=== PATIENT | female | born 1945 | race Caucasian/White ===

== ENCOUNTER 2019-03-11 09:13 | Day surgery (SDC) | payer OTHER ==
[2019-03-11] MEDS ORDERED: NA CHLORIDE 0.9% 1,000 ML ONE (09:57)
[2019-03-11 10:49] LABS: Absolute Lymphocytes (CBC) 1.1 K/uL (0.7-4.9); Basophils % 0.8 % (0-1.3); Hematocrit 39.4 % (36.0-45.0); Lymphocytes % 11.7 % (15.3-44.8); MPV 10.1 fL (7.6-11.3); RBC Red Blood Cell Count 4.31 M/uL (3.86-4.86)
[2019-03-11 10:59] LABS: Protime INR 1.17
[2019-03-11] MEDS ORDERED: INSULIN -REGULAR HUMAN 50 UNIT/0.5 ML ML ONE (11:04)
[2019-03-11 11:12] LABS: Potassium 4.7 mmol/L (3.5-5.1)
[2019-03-11 11:15] VITALS: BP 91/76; TEMP 98; O2SAT 98
--- NOTE | 2019-03-11 11:55 | RAD REPORT ---
EXAM DESCRIPTION: RAD - Chest Pa And Lat (2 Views) - 03/11/2019 11:43 am CLINICAL HISTORY: Colorectal screening Chest pain. COMPARISON: CHEST SINGLE VIEW dated 08/23/2011 FINDINGS: The lungs are hyperexpanded but clear. The heart is moderately enlarged with a single lead pacer device. No displaced fractures.
[2019-03-11] MEDS ORDERED: GLYCOPYRROLATE 0.2 MG/ML SYR ONE (12:16)
[2019-03-11] MEDS ORDERED: LIDOCAINE 1% MPF 30 ML VIAL ONE (12:16)
[2019-03-11] MEDS ORDERED: PROPOFOL 200 MG/20 ML VIAL IV ONE (12:16)
[2019-03-11] MEDS ORDERED: DILTIAZEM 125 MG in NS 125 ML IVPB ONE (12:30)
--- NOTE | 2019-03-11 15:52 | EKG ---
Test Date: 2019-03-11 Test Time: 10:44:47 Breast Splitter: JOSE MEASUREMENT RESULTS: Intervals: Rate: 137 MA: QRSD: 82 QT: 310 QTc: 468 [place]: P: MA: QRS: 38 T: 126 INTERPRETIVE STATEMENTS: Atrial fibrillation with rapid ventricular response with premature ventricular or aberrantly conducted complexes Nonspecific T wave abnormality, probably digitalis effect Abnormal ECG Compared to ECG 08/23/2011 20:24:52 T-wave abnormality now present Ventricular-paced complex(es) or rhythm no longer present ST (T wave) deviation no longer present Possible ischemia no longer present Electronically Signed On 03-11-19 15:50:42 CDT by Elier Cortez
[2019-03-12] MEDS ORDERED: NA CHLORIDE 0.9% 1,000 ML ONE (10:18)
[2019-03-12] MEDS ORDERED: TRAMADOL HCL 50 MG TAB ONE (13:11)
== END 2019-03-11 13:04 | disposition home or self-care (01) ==
LOC: OR 09:13
PROVIDERS: ATTEND Surgery
DX: Z12.11 Encounter for screening for malignant neoplasm of colon (principal); Z53.8 Procedure and treatment not carried out for other reasons
CPT/HCPCS: 93005; 85025; 80048; 36415; 85610; 82962 ×3; 85730; 71046; J2704; J7030

== ENCOUNTER 2019-03-11 12:38 | Observation (INO) | payer OTHER ==
[2019-03-11] MEDS ORDERED: METOPROLOL TAR 25 MG TAB ONE (12:55)
[2019-03-11] MEDS ORDERED: NA CHLORIDE 0.9% 1,000 ML ONE (12:55)
[2019-03-11] MEDS ORDERED: METOPROLOL TARTRATE 5 MG/5 ML INJ IV ONE (12:55)
[2019-03-11 13:22] LABS: Absolute Lymphocytes (CBC) 1.2 K/uL (0.7-4.9); Basophils % 0.7 % (0-1.3); Hematocrit 41.2 % (36.0-45.0); Lymphocytes % 14.3 % (15.3-44.8); MPV 10.3 fL (7.6-11.3); Protime INR 1.21; RBC Red Blood Cell Count 4.46 M/uL (3.86-4.86)
--- NOTE | 2019-03-11 13:29 | EDPHYS ---
Physician Documentation [facility] Name: Candice Hunter Age: 73 yrs Sex: Female : 1945 Arrival Date: 03/11/2019 Time: 12:39 Bed 4 Private MD: ED Physician Fredy Barbosa HPI: 03/11 12:59 This 73 yrs old Female presents to ER via Stretcher with complaints of steve abnormal EKG. 12:59 The patient presents with a history of irregular heart beat, heart racing. Context: The steve symptoms occur at rest. Onset: The symptoms/episode began/occurred just prior to arrival, this morning. Duration: The patient or guardian reports a single episode, that is still ongoing. Modifying factors: The symptoms are aggravated by nothing. The symptoms are alleviated by nothing. Associated signs and symptoms: The patient has no apparent associated signs or symptoms. Severity of symptoms: At their worst the symptoms were mild in the emergency department the symptoms are unchanged. The patient has not experienced similar symptoms in the past. Historical: - Allergies: 12:52 Iodine; tw2 12:52 Sulfa (Sulfonamide Antibiotics); tw2 - Home Meds: 12:52 atorvastatin 40 mg oral tab 1 tab once daily [Active]; levothyroxine 100 mcg tab 1 tab tw2 once daily [Active]; warfarin 3 mg Oral tab 1 tab once daily [Active]; digoxin 125 mcg Oral tab 1 tab once daily [Active]; Toujeo SoloStar 300 unit/mL (1.5 mL) subcutaneous inpn 26 units [Active]; aspirin 81 mg Oral chew 1 tab once daily [Active]; Breo Ellipta 100-25 mcg/dose inhalation dsdv 1 puff once daily [Active]; metoprolol succinate 100 mg oral Tb24 1 tab once daily [Active]; - PMHx: 12:52 Hypertension; COPD; CHF; Heart Murmur; tw2 14:26 Atrial Fib; tw2 - PSHx: 12:52 heart valve replacement; ovarian cyst, right ovary; Cholecystectomy; ; tw2 - Immunization history:: Adult Immunizations. - Social history:: Smoking status: . - Family history:: not pertinent. - Ebola Screening: : Patient denies travel to an Ebola-affected area in the 21 days before illness onset. ROS: 12:59 Constitutional: Negative for fever, chills, and weight loss, Eyes: Negative for injury, steve pain, redness, and discharge, ENT: Negative for injury, pain, and discharge, Neck: Negative for injury, pain, and swelling, Respiratory: Negative for shortness of breath, cough, wheezing, and pleuritic chest pain, Abdomen/GI: Negative for abdominal pain, nausea, vomiting, diarrhea, and constipation, Back: Negative for injury and pain, : Negative for injury, bleeding, discharge, and swelling, MS/Extremity: Negative for injury and deformity, Skin: Negative for injury, rash, and discoloration, Neuro: Negative for headache, weakness, numbness, tingling, and seizure, Psych: Negative for depression, anxiety, suicide ideation, homicidal ideation, and hallucinations, Allergy/Immunology: Negative for hives, rash, and allergies, Endocrine: Negative for neck swelling, polydipsia, polyuria, polyphagia, and marked weight changes, Hematologic/Lymphatic: Negative for swollen nodes, abnormal bleeding, and unusual bruising. 12:59 Cardiovascular: Positive for palpitations. Exam: 12:59 Constitutional: This is a well developed, well nourished patient who is awake, alert, steve and in no acute distress. Head/Face: Normocephalic, atraumatic. Eyes: Pupils equal round and reactive to light, extra-ocular motions intact. Lids and lashes normal. Conjunctiva and sclera are non-icteric and not injected. Cornea within normal limits. Periorbital areas with no swelling, redness, or edema. ENT: Nares patent. No nasal discharge, no septal abnormalities noted. Tympanic membranes are normal and external auditory canals are clear. Oropharynx with no redness, swelling, or masses, exudates, or evidence of obstruction, uvula midline. Mucous membranes moist. Neck: Trachea midline, no thyromegaly or masses palpated, and no cervical lymphadenopathy. Supple, full range of motion without nuchal rigidity, or vertebral point tenderness. No Meningismus. Chest/axilla: Normal chest wall appearance and motion. Nontender with no deformity. No lesions are appreciated. Respiratory: Lungs have equal breath sounds bilaterally, clear to auscultation and percussion. No rales, rhonchi or wheezes noted. No increased work of breathing, no retractions or nasal flaring. Abdomen/GI: Soft, non-tender, with normal bowel sounds. No distension or tympany. No guarding or rebound. No evidence of tenderness throughout. Back: No spinal tenderness. No costovertebral tenderness. Full range of motion. Female : Normal external genitalia. Skin: Warm, dry with normal turgor. Normal color with no rashes, no lesions, and no evidence of cellulitis. MS/ Extremity: Pulses equal, no cyanosis. Neurovascular intact. Full, normal range of motion. Neuro: Awake and alert, GCS 15, oriented to person, place, time, and situation. Cranial nerves II-XII grossly intact. Motor strength 5/5 in all extremities. Sensory grossly intact. Cerebellar exam normal. Normal gait. Psych: Awake, alert, with orientation to person, place and time. Behavior, mood, and affect are within normal limits. 12:59 Cardiovascular: Rate: tachycardic, Rhythm: irregularly irregular, Pulses: Pulses are 4+ in bilateral radial, brachial, femoral, popliteal, posterior tibial and and dorsalis pedis arteries.. Heart sounds: normal, Edema: is not appreciated, JVD: is not appreciated. Vital Signs: 12:42 BP 115 / 94; Pulse 121; Resp 14; Temp 97.4(O); Pulse Ox 100% on R/A; tw2 13:30 BP 114 / 81; Pulse 95; Resp 17; Pulse Ox 100% on R/A; tw2 13:43 Weight 70.31 kg (R); Height 5 ft. 6 in. (167.64 cm); tw2 14:24 BP 107 / 71; Pulse 90; Resp 15; Pulse Ox 100% on R/A; tw2 15:12 BP 96 / 50; Pulse 91; Resp 19; Pulse Ox 100% on R/A; tw2 13:43 Body Mass Index 25.02 (70.31 kg, 167.64 cm) tw2 MDM: 12:44 Patient medically screened. [facility] 13:02 Data reviewed: vital signs, nurses notes, lab test result(s), EKG, radiologic studies, [facility] plain films. 03/11 12:49 Order name: Basic Metabolic Panel; Complete Time: 14:41 [facility] 03/11 12:49 Order name: CBC with Diff; Complete Time: 13:28 [facility] 03/11 12:49 Order name: LFT's; Complete Time: 14:41 03/11 12:49 Order name: Magnesium; Complete Time: 14:41 03/11 12:49 Order name: NT PRO-BNP; Complete Time: 14:41 03/11 12:49 Order name: PT-INR; Complete Time: 13:28 03/11 12:49 Order name: Troponin (emerg Dept Use Only); Complete Time: 14:41 03/11 12:49 Order name: XRAY Chest (1 view); Complete Time: 14:41 03/11 12:49 Order name: TSH; Complete Time: 14:41 03/11 12:49 Order name: Urine Culture 03/11 12:51 Order name: Digoxin; Complete Time: 14:41 [facility] 03/11 12:49 Order name: EKG; Complete Time: 12:49 [facility] 03/11 12:49 Order name: Cardiac monitoring; Complete Time: 12:53 03/11 12:49 Order name: EKG - Nurse/Tech; Complete Time: 12:53 [facility] 03/11 12:49 Order name: IV Saline Lock; Complete Time: 12:53 [facility] 03/11 12:49 Order name: Labs collected and sent; Complete Time: 13:10 steve 03/11 12:49 Order name: O2 Per Protocol; Complete Time: 12:53 [facility] 03/11 12:49 Order name: O2 Sat Monitoring; Complete Time: 12:53 [facility] Administered Medications: 13:05 Drug: NS 0.9% 1000 ml Route: IV; Rate: 125 ml/hr; Site: left wrist; tw2 15:14 Follow up: Response: No adverse reaction; IV Status: Infusion continued upon admission tw2 13:05 Drug: Lopressor 25 mg Route: PO; tw2 13:44 Follow up: Response: No adverse reaction tw2 13:08 Drug: Lopressor 2.5 mg Route: IVP; Site: left wrist; tw2 13:44 Follow up: Response: No adverse reaction tw2 14:00 Drug: Lovenox 1 mg/kg Route: Sub-Q; Site: right lower abdomen; tw2 14:36 Follow up: Response: No adverse reaction tw2 14:00 Drug: Pepcid 20 mg Route: IVP; Site: left wrist; tw2 14:36 Follow up: Response: No adverse reaction tw2 14:50 Drug: Digoxin 0.5 mg Route: IVP; Site: left wrist; tw2 15:08 Follow up: Response: No adverse reaction tw2 14:51 Not Given (Duplicate Order): Lopressor 2.5 mg IVP once; Hold for SBP <100 or HR <60. tw2 Disposition: 03/11/19 13:28 Hospitalization ordered by Elvis Berg for Inpatient Admission. Preliminary diagnosis are Cardiomegaly, Atrial fibrillation and flutter. - Bed requested for Telemetry/MedSurg (Inpatient). - Status is Inpatient Admission. tw2 - Condition is Fair. - Problem is new. - Symptoms have improved. UTI on Admission? No Signatures: Dispatcher [employer] Jory Buitrago RN RN Fredy Marie MD MD cha Wise, Tara, RN RN tw2 Corrections: (The following items were deleted from the chart) 14:46 13:28 Hospitalization Ordered by Elvis Berg DO for Inpatient Admission. Preliminary diagnosis is Cardiomegaly; Atrial fibrillation and flutter. Bed requested for Telemetry/MedSurg (Inpatient). Status is Inpatient Admission. Condition is Fair. Problem is new. Symptoms have improved. UTI on Admission? No. steve 15:24 14:46 03/11/2019 13:28 Hospitalization Ordered by Elvis Berg DO for Inpatient tw2 Admission. Preliminary diagnosis is Cardiomegaly; Atrial fibrillation and flutter. Bed requested for Telemetry/MedSurg (Inpatient). Status is Inpatient Admission. Condition is Fair. Problem is new. Symptoms have improved. UTI on Admission? No. dw
--- NOTE | 2019-03-11 13:29 | ER ---
Nurse's Notes [facility] Name: Candice Hunter Age: 73 yrs Sex: Female : 1945 Arrival Date: 03/11/2019 Time: 12:39 Bed 4 Private MD: Diagnosis: Cardiomegaly;Atrial fibrillation and flutter Presentation: 03/11 12:40 Presenting complaint: Patient states: Patient was scheduled for colonoscopy today in Day Surgery when she had her EKG obtained it showed Afib. Patient sent by Dr. Garibay for further evaluation and treatment. Transition of care: Day surgery department. Risk Assessment: Do you want to hurt yourself or someone else? Patient reports no desire to harm self or others. Initial Sepsis Screen: Does the patient meet any 2 criteria? HR > 90 bpm. Does the patient have a suspected source of infection? No. Patient's initial sepsis screen is negative. Care prior to arrival:. 12:40 Method Of Arrival: Stretcher 12:40 Acuity: LITA 2 14:26 Onset of symptoms was March 11, 2019. tw2 Triage Assessment: 12:42 General: Appears in no apparent distress. Behavior is calm, cooperative, appropriate tw2 for age. Pain: Denies pain. Historical: - Allergies: 12:52 Iodine; tw2 12:52 Sulfa (Sulfonamide Antibiotics); tw2 - Home Meds: 12:52 atorvastatin 40 mg oral tab 1 tab once daily [Active]; levothyroxine 100 mcg tab 1 tab tw2 once daily [Active]; warfarin 3 mg Oral tab 1 tab once daily [Active]; digoxin 125 mcg Oral tab 1 tab once daily [Active]; Toujeo SoloStar 300 unit/mL (1.5 mL) subcutaneous inpn 26 units [Active]; aspirin 81 mg Oral chew 1 tab once daily [Active]; Breo Ellipta 100-25 mcg/dose inhalation dsdv 1 puff once daily [Active]; metoprolol succinate 100 mg oral Tb24 1 tab once daily [Active]; - PMHx: 12:52 Hypertension; COPD; CHF; Heart Murmur; tw2 14:26 Atrial Fib; tw2 - PSHx: 12:52 heart valve replacement; ovarian cyst, right ovary; Cholecystectomy; ; tw2 - Immunization history:: Adult Immunizations. - Social history:: Smoking status: . - Family history:: not pertinent. - Ebola Screening: : Patient denies travel to an Ebola-affected area in the 21 days before illness onset. Screenin:47 Abuse screen: Denies threats or abuse. Nutritional screening: No deficits noted. tw2 Tuberculosis screening: No symptoms or risk factors identified. Fall Risk Secondary diagnosis (15 points) impaired mobility. Assessment: 12:45 General: Appears in no apparent distress. Behavior is calm, cooperative, appropriate tw2 for age. Pain: Denies pain. Neuro: Level of Consciousness is awake, alert, obeys commands, Oriented to person, place, time, situation. Cardiovascular: Heart tones S1 S2 Patient's skin is warm and dry. Rhythm is atrial fibrillation With PVC's. Respiratory: Airway is patent Respiratory effort is even, unlabored, Respiratory pattern is regular, symmetrical, Breath sounds are clear bilaterally. GI: No signs and/or symptoms were reported involving the gastrointestinal system. Abdomen is flat, Bowel sounds present X 4 quads. : No signs and/or symptoms were reported regarding the genitourinary system. EENT: No signs and/or symptoms were reported regarding the EENT system. Derm: No signs and/or symptoms reported regarding the dermatologic system. Musculoskeletal: Range of motion: intact in all extremities. 12:45 Reassessment: pt states "i have a history of afib". tw2 13:30 Reassessment: Patient appears in no apparent distress at this time. No changes from tw2 previously documented assessment. Reassessment: Patient and/or family updated on plan of care and expected duration. Pain level reassessed. Patient is alert, oriented x 3, equal unlabored respirations, skin warm/dry/pink. 14:24 Reassessment: Patient appears in no apparent distress at this time. No changes from tw2 previously documented assessment. Patient and/or family updated on plan of care and expected duration. Pain level reassessed. Patient is alert, oriented x 3, equal unlabored respirations, skin warm/dry/pink. 15:12 Reassessment: Patient appears in no apparent distress at this time. No changes from tw2 previously documented assessment. Patient and/or family updated on plan of care and expected duration. Pain level reassessed. Patient is alert, oriented x 3, equal unlabored respirations, skin warm/dry/pink. Vital Signs: 12:42 BP 115 / 94; Pulse 121; Resp 14; Temp 97.4(O); Pulse Ox 100% on R/A; tw2 13:30 BP 114 / 81; Pulse 95; Resp 17; Pulse Ox 100% on R/A; tw2 13:43 Weight 70.31 kg (R); Height 5 ft. 6 in. (167.64 cm); tw2 14:24 BP 107 / 71; Pulse 90; Resp 15; Pulse Ox 100% on R/A; tw2 15:12 BP 96 / 50; Pulse 91; Resp 19; Pulse Ox 100% on R/A; tw2 13:43 Body Mass Index 25.02 (70.31 kg, 167.64 cm) tw2 ED Course: 12:39 Patient arrived in ED. bd 12:40 Placed in gown. Bed in low position. Side rails up X2. electronic device monitor on. Pulse ox on. tw2 NIBP on. Warm blanket given. 12:41 Triage completed. ss 12:42 Natasha De Souza, RAJINDER is Primary Nurse. tw2 12:42 Arm band placed on. tw2 12:44 Fredy Barbosa MD is Attending Physician. steve 12:59 EKG done, by slot technician. reviewed by Fredy Barbosa MD. at1 13:17 XRAY Chest (1 view) In Process Unspecified. EDMS 13:26 Elvis Berg DO is Hospitalizing Provider. steve 15:12 No provider procedures requiring assistance completed. Inserted saline lock: 20 gauge tw2 in left wrist, using aseptic technique. ,using aseptic technique. from Endo, maintain IV 15:13 Patient admitted, IV remains in place. tw2 Administered Medications: 13:05 Drug: NS 0.9% 1000 ml Route: IV; Rate: 125 ml/hr; Site: left wrist; tw2 15:14 Follow up: Response: No adverse reaction; IV Status: Infusion continued upon admission tw2 13:05 Drug: Lopressor 25 mg Route: PO; tw2 13:44 Follow up: Response: No adverse reaction tw2 13:08 Drug: Lopressor 2.5 mg Route: IVP; Site: left wrist; tw2 13:44 Follow up: Response: No adverse reaction tw2 14:00 Drug: Lovenox 1 mg/kg Route: Sub-Q; Site: right lower abdomen; tw2 14:36 Follow up: Response: No adverse reaction tw2 14:00 Drug: Pepcid 20 mg Route: IVP; Site: left wrist; tw2 14:36 Follow up: Response: No adverse reaction tw2 14:50 Drug: Digoxin 0.5 mg Route: IVP; Site: left wrist; tw2 15:08 Follow up: Response: No adverse reaction tw2 14:51 Not Given (Duplicate Order): Lopressor 2.5 mg IVP once; Hold for SBP <100 or HR <60. tw2 Outcome: 13:28 Decision to Hospitalize by Provider. steve 15:13 Admitted to Med/surg accompanied by tech, via wheelchair, room 407, with chart, Report tw2 called to RAJINDER Green 15:13 Condition: stable 15:13 Instructed on the need for admit. 15:24 Patient left the ED. tw2 Signatures: Dispatcher [employer] EDMS Tina Pagan Corey, MD MD cha Smirch, Shelby RN RN Ananya Acuna, electrocardiograph technician EKG Tat1 Natasha De Souza RN RN tw2
[2019-03-11 13:44] LABS: ALT/SGPT 35 U/L (12-78); AST/SGOT 36 U/L (15-37); Alkaline Phosphatase 97 U/L (45-117); BUN Blood Urea Nitrogen 16 mg/dL (7-18); Bicarbonate 24 mmol/L (21-32); Bilirubin Direct 0.4 mg/dL (0-0.2); Bilirubin Total 2.1 mg/dL (0.2-1.0); Glucose Level 231 mg/dL (74-106); NT PRO-BNP 2352 pg/mL (<125); Potassium 4.9 mmol/L (3.5-5.1); Protein, Total 7.1 g/dL (6.4-8.2); Sodium Level 139 mmol/L (136-145); Troponin (Emerg Dept Use Only) < 0.02 ng/mL (0.0-0.045)
--- NOTE | 2019-03-11 13:49 | RAD REPORT ---
EXAM DESCRIPTION: RAD - Chest Single View - 03/11/2019 1:17 pm CLINICAL HISTORY: Cough, abnormal EKG, pending colonoscopy COMPARISON: March 11 TECHNIQUE: AP portable chest image was obtained 1306 hours . FINDINGS: Mild chronic interstitial lung disease. No focal lung parenchymal process. No significant failure or volume overload. Cardiomegaly is present and increased slightly from comparison. Pacemaker is in place. No measurable pleural effusion and no pneumothorax. No acute bony abnormality seen. No acute aortic findings suspected. IMPRESSION: Mild chronic interstitial lung pattern similar to comparison. Mild cardiomegaly without additional findings of significant failure or volume overload.
[2019-03-11] MEDS ORDERED: ENOXAPARIN 80 MG/0.8 ML SQ ONE (13:56)
[2019-03-11] MEDS ORDERED: FAMOTIDINE 20 MG/2 ML VIAL IV ONE (13:56)
--- NOTE | 2019-03-11 14:36 | P.HP ---
Certification for Inpatient Patient admitted to: Observation With expected LOS: <2 Midnights Patient will require the following post-hospital care: None Practitioner: I am a practitioner with admitting privileges, knowledge of patient current condition, hospital course, and medical plan of care. Services: Services provided to patient in accordance with Admission requirements found in Title 42 Section 412.3 of the Code of Federal Regulations Patient History Date of Service: 03/11/19 Primary Care Provider: Dr. Jarocho Patricio; Cardiology-Dr. Cortez; Surgery-Dr. Garibay Reason for admission: Atrial fibrillation with RVR History of Present Illness: 73-year-old female presented to the emergency room with atrial fibrillation and RVR. Patient with history of atrial fibrillation on chronic anti coagulation therapy , hypertension, hypothyroidism, diabetes mellitus type 2 insulin dependent, mitral valve replacement, and hyperlipidemia. Patient was to have her colonoscopy today as an outpatient. Prior to coming in to outpatient surgery, she had held her Coumadin for 3 days in preparation for colonoscopy. She had been cleared by cardiology as well for the colonoscopy. In her evaluation by Anesthesia prior to the colonoscopy, the patient was found to have atrial fibrillation with RVR with a rate in the 120s. Anesthesia recommended that the patient be evaluated in the ER to further address. Patient came to the ER for further evaluation. Rate in the 120s. Patient was given Lopressor with improvement. Patient was admitted for further evaluation. On lab white count 8.5, hemoglobin 14.5. INR 1.21. Sodium 138, potassium 4.9, BUN of 16, creatinine 1.28 with a GFR 41. Glucose 231. Chest x-ray unremarkable. EKG shows atrial fibrillation. Rate now around 100. When I saw the patient ER, she appeared comfortable. She denies any chest pain , shortness of breath. She denies any nausea or vomiting. Patient took her prep for colonoscopy last night. Allergies iodine [Iodine] Allergy (Mild, Verified 08/23/11 17:33) Hives Home medications list reviewed: Yes Home Medications: Atorvastatin Calcium [Lipitor] 40 mg PO DAILY 08/23/11 Dicyclomine [Bentyl*] 20 mg PO TID 08/23/11 Digoxin [Lanoxin] 0.125 mg PO DAILY 08/23/11 Fluticasone/Salmeterol [Advair 250/50 Diskus*] 1 puff IH BID 08/23/11 Furosemide 20 mg PO DAILY 08/23/11 Levalbuterol Tartrate [Xopenex Hfa] 2 puff IH Q6H 08/23/11 Levalbuterol [Xopenex*] 1 aero IH BID 08/23/11 Levothyroxine [Synthroid*] 150 mcg PO DAILY 08/23/11 Metformin HCl [Glucophage XR OR ER] 500 mg PO BID 08/23/11 Metoprolol Tartrate [Lopressor*] 50 mg PO BID 08/23/11 PROMETHAZINE TAB *er disp* [[id number](4/BOX)*forerdispense] 25 mg PO TID 08/23/11 Warfarin Sodium 2.5 mg PO DAILY 08/23/11 Enoxaparin Sodium [Lovenox] 40 mg SQ DAILY #5 ml 08/25/11 Hydrocodone/Acetaminophen [Vicodin Es 7.5-750 mg Tablet] 1 tab PO Q4H PRN #30 tablet 08/25/11 Sulfamethoxazole/Trimethoprim [Bactrim Ds Tablet] 1 tab PO BID #10 tablet - Past Medical/Surgical History Diabetic: Yes -: Hypertension -: COPD -: Atrial fibrillation on chronic anti coagulation therapy -: Mitral valve replacement on chronic anti coagulation therapy -: Hyperlipidemia -: Hypothyroidism -: Diabetes mellitus type 2, insulin-dependent -: History of pacemaker -: Mitral valve replacement -: Pacemaker -: Right cyst removed from ovary -: Psychosocial/ Personal History: Patient is . She lives alone in an apartment. - Family History Family History: Reviewed- Non-Contributory - Social History Smoking Status: Never smoker Alcohol use: No CD- Drugs: No Caffeine use: Yes Place of Residence: Home Review of Systems General: As per HPI Eyes: Unremarkable ENT: Unremarkable Respiratory: Unremarkable Cardiovascular: Unremarkable Gastrointestinal: Unremarkable Genitourinary: Unremarkable Musculoskeletal: Unremarkable Integumentary: Unremarkable Neurological: Unremarkable Lymphatics: Unremarkable Physical Examination - Physical Exam General: Alert, In no apparent distress, Oriented x3, Cooperative HEENT: Atraumatic, Normocephalic, PERRLA, Mucous membr. moist/pink Neck: Supple Respiratory: Clear to auscultation bilaterally, Normal air movement Cardiovascular: Irregular heart rate/rhythm (Atrial fibrillation rate around 100 ) Gastrointestinal: Normal bowel sounds, Soft and benign, Non-distended, No tenderness, No masses, No rebound, No guarding Musculoskeletal: No erythema, No tenderness, No warmth Integumentary: No tenderness/swelling, No erythema, No warmth, No cyanosis Neurological: Normal speech, Normal strength at 5/5 x4 extr, Normal tone, Normal affect Lymphatics: No axilla or inguinal lymphadenopathy - Studies Laboratory Data (last 24 hrs) 03/11/19 13:02: PT 14.2 H, INR 1.21 03/11/19 13:02: WBC 8.5, Hgb 14.5, Hct 41.2, Plt Count 204 03/11/19 13:02: Sodium 139, Potassium 4.9, BUN 16, Creatinine 1.28, Glucose 231 H, Magnesium 2.0, Total Bilirubin 2.1 H, AST 36, ALT 35, Alkaline Phosphatase 97 Assessment and Plan - Plan Impression: Atrial fibrillation with RVR on chronic anti coagulation therapy History of mitral valve replacement and pacemaker Hypertension Hyperlipidemia Hypothyroidism Diabetes mellitus type 2, insulin dependent Chronic renal disease, stage III Plan: Atrial fibrillation with RVR on chronic anti coagulation therapy: Patient will be admitted for observation. Will consult cardiology for further recommendation. Will restart home medication of metoprolol for rate control. Will also continue with digoxin. Will continue to hold Coumadin as the patient will likely have colonoscopy tomorrow if cleared by Cardiology with a rate improved. Will keep the patient NPO after midnight. Will discuss with cardiology. Will provide DVT prophylaxis-Lovenox. Anticipate discharge home tomorrow after colonoscopy History of mitral valve replacement and pacemaker: Continue as above. Hold Coumadin at this time. Hypertension: Continue metoprolol. Hyperlipidemia: Continue Lipitor. Hypothyroidism: Continue levothyroxine. Diabetes mellitus type 2, insulin dependent: Will monitor Accu-Cheks and provide sliding scale. Chronic renal disease, stage III: Will monitor lab closely. Discharge Plan: Home Plan to discharge in: 24 Hours - Advance Directives Does patient have a Living Will: No Does patient have a Durable POA for Healthcare: No - Code Status/Comfort Care Code Status Assessed: Yes Code Status: Full Code Time Spent Managing Pts Care (In Minutes): 55
[2019-03-11] MEDS ORDERED: DIGOXIN 0.25 MG/ML AMP ONE (14:48)
[2019-03-11] MEDS ORDERED: ACETAMINOPHEN 500 MG TAB PO PRN (15:00)
[2019-03-11] MEDS ORDERED: ONDANSETRON 4 MG/2 ML VIAL IV PRN (15:00)
--- NOTE | 2019-03-11 15:51 | EKG ---
Test Date: 2019-03-11 Test Time: 12:51:00 Fire Tender: JOSE MEASUREMENT RESULTS: Intervals: Rate: 111 MT: QRSD: 84 QT: 328 QTc: 446 [place]: P: MT: QRS: 48 T: 68 INTERPRETIVE STATEMENTS: Atrial fibrillation with rapid ventricular response with premature ventricular or aberrantly conducted complexes Nonspecific T wave abnormality Abnormal ECG Compared to ECG 03/11/2019 10:44:47 No significant changes Electronically Signed On 03-11-19 15:50:02 CDT by lEier Cortez
[2019-03-11] MEDS ORDERED: PNEUMOCOCCAL VACCINE 0.5 ML IMVAC ONE (16:00)
[2019-03-11] MEDS ORDERED: INFLUENZA VACCINE (for 3y+) 0.5 ML DOSE IMVAC ONE (16:00)
[2019-03-11 16:02] VITALS: BMI 23.5
[2019-03-11] MEDS: INSULIN -REGULAR HUMAN 50 UNIT/0.5 ML ML SQ SCH ×2 (16:30→20:46)
--- NOTE | 2019-03-11 17:10 | CON ---
This is a 73-year-old woman. Ms. Hunter is a woman, who has been in atrial fibrillation for more than 20 years. 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 She has an abnormal Cologuard test suggesting colon cancer, so a colonoscopy was planned and the patient was taken off Coumadin and given Lovenox and when she was ready to be induced by anesthesia, her heart rate was in the 120s. She did not feel bad in any way. She was sent to the emergency room. Since then, her heart rate is much slower. Ms. Hunter has a history of mitral valve replacement, chronic atrial fibrillation, rheumatic fever, diabetes , and an abnormal Cologuard test. Her outpatient medications include Coumadin digoxin and metoprolol, which were held, until after her colonoscopy. Outpatient Medications: Atorvastatin, levothyroxine, Coumadin, digoxin 0.125 mg daily, Toujeo SoloStar 1.5 mL subcutaneously. Aspirin, Breo Ellipta, metoprolol succinate 100 mg once a day. Surgical History: She has a history of ovarian cyst, cholecystectomy, section. Social History: She uses no tobacco. Physical Examination: General: She is 5 feet 10 inches, 164 pounds. Alert, oriented, pleasant, not in distress. Vital Signs: Blood pressure 107/71, heart rate 90, respirations 15, O2 saturation 100% on room air. HEENT: Normal. Lungs: Clear. Cardiac Exam: Irregularly irregular going about 80 beats per minute. There are typical mechanical prosthetic heart tones typical for mitral mechanical device most likely a [place]. There is no diastolic murmur. Extremities: Reveal no cyanosis, clubbing, or edema. No carotid bruit. An electrocardiogram shows atrial fibrillation, heart rate 111, occasional PVCs or aberrantly conducted complexes, nonspecific T-wave abnormality. Impression: The patient needs to continue to take her metoprolol succinate and digoxin. If her heart rate is fast right before the surgery, either metoprolol could be given and the colonoscopy can proceed. She should get a dose of Lovenox tonight at 6, not take any Coumadin and by 6 a.m. tomorrow she will be in good shape for going through the colonoscopy. Minimal risk of bleeding, even if she gets biopsies. She seems to be a low risk patient. If those things are done, I think her heart rate was up, probably because of being n.p.o. she did not take metoprolol or digoxin. Thank you very much for your kind referral of Ms. Hunter. I will follow her with you. ZULY Voice ID: [id number] Report ID: [id number] ANNA
[2019-03-11] MEDS ORDERED: ENOXAPARIN 80 MG/0.8 ML SQ SCH ×2 (18:00→21:00)
[2019-03-11] MEDS: ENOXAPARIN 80 MG/0.8 ML SQ SCH (18:12)
[2019-03-11 19:13] LABS: Urine Appearance CLOUDY; Urine Blood 2+ (NEG); Urine Color DK YELLOW; Urine Glucose TRACE (NEG); Urine Protein 2+ (NEG); Urine Specific Gravity 1.015 (1.005-1.030); Urine Urobilinogen 0.2 mg/dL (0.2-1.0)
[2019-03-11 19:23] LABS: Urine Bilirubin NEGATIVE (NEG); Urine Microscopic Reflex ORDER UMIC
[2019-03-11 19:40] LABS: Urine Bacteria LOADED /HPF (<20); Urine Coarse Granular Casts 0-5 /LPF (NONE SEEN); Urine Culture Reflex Order REFLEXED; Urine Mucus 1+ /HPF (NONE SEEN)
[2019-03-11] MEDS ORDERED: ATORVASTATIN 40 MG TAB PO SCH (21:00)
[2019-03-12 04:20] LABS: Absolute Lymphocytes (CBC) 1.5 K/uL (0.7-4.9); Basophils % 1.2 % (0-1.3); Hematocrit 36.7 % (36.0-45.0); Lymphocytes % 22.5 % (15.3-44.8); MPV 10.2 fL (7.6-11.3); RBC Red Blood Cell Count 4.04 M/uL (3.86-4.86)
[2019-03-12 04:30] LABS: Magnesium 1.8 mg/dL (1.8-2.4); Potassium 4.2 mmol/L (3.5-5.1)
[2019-03-12] MEDS ORDERED: MAGNESIUM SULFATE 1 gm IVPB 1 GM/100 ML BAG IV ONE (04:40)
[2019-03-12] MEDS ORDERED: LEVOTHYROXINE SOD 0.1 MG TAB PO SCH (06:30)
[2019-03-12] MEDS: INSULIN -REGULAR HUMAN 50 UNIT/0.5 ML ML SQ SCH ×2 (07:30→11:30)
[2019-03-12] MEDS: ENOXAPARIN 80 MG/0.8 ML SQ SCH (08:38)
[2019-03-12] MEDS ORDERED: ENOXAPARIN 40 MG/0.4 ML SQ SCH (09:00)
[2019-03-12] MEDS ORDERED: METOPROLOL XL 100 MG TAB PO SCH (09:00)
[2019-03-12] MEDS ORDERED: DIGOXIN 0.125 MG TABLET PO SCH (09:00)
--- NOTE | 2019-03-12 10:50 | PREOPCON ---
Date of Consultation: 03/11/2019 Reason For Consultation: Patient needs colonoscopy. History Of Present Illness: Patient is a 73-year-old female, who I saw in the office, who had an abn ormal Cologuard test and needed colonoscopy. She had some weight loss recently as well. She was pre pped and she came in, however, she was found to be in atrial fibrillation with RVR. She went to the ER, was admitted, and she was seen by Cardiology. They have cleared her for a colonoscopy today, the refore we will proceed with colonoscopy as scheduled. She has no cardiac symptoms at this time. Review of Systems: Otherwise unremarkable. Past Medical History: Significant for hypertension, COPD, atrial fibrillation on chronic anticoagula tion therapy, hyperlipidemia, hypothyroidism, diabetes type 2. Past Surgical History: Mitral valve replacement, pacemaker, , cystectomy from an ovary. Allergies: IODINE. Social History: Patient does not smoke or drink alcohol. Family History: Noncontributory. Physical Examination: Vital Signs: Stable. Afebrile currently. Rate is 85. General: She is awake, alert, and oriented x3. Head and Neck: No masses. Chest: Clear. Heart: S1 and S2. Abdomen: Soft. Extremities: Neurovascularly intact. Neuro: Nonfocal. Assessment: Abnormal Cologuard result, weight loss, atrial fibrillation with rapid ventricular respo nse under control. Recommendations: We will proceed with colonoscopy as scheduled. Patient understands the risks, bene fits, and alternatives and agrees to procedure. ELVIN/ANGELICA Voice ID: [id number] Report ID: [id number]
[2019-03-12] MEDS ORDERED: PROPOFOL 200 MG/20 ML VIAL IV ONE ×2 (11:59)
[2019-03-12] MEDS ORDERED: FENTANYL CITR 100 MCG/2 ML ONE (12:37)
--- NOTE | 2019-03-12 12:43 | P.DS ---
Admission Date: 03/11/19 Discharge Date: 03/12/19 Primary Care Provider: Dr. Jarocho Patricio; Cardiology-Dr. Cortez; Surgery-Dr. Garibay Disposition: ROUTINE DISCHARGE Discharge Condition: GOOD Reason for Admission: Atrial fibrillation with RVR Consultations: Cardiology-Dr. Cortez Surgery-Dr. Garibay Procedures: Colonoscopy: Colonoscopy performed with removal of colon polyp Medical Problem List: Atrial fibrillation with RVR on chronic anti coagulation therapy History of mitral valve replacement and pacemaker Hypertension Hyperlipidemia Hypothyroidism Diabetes mellitus type 2, insulin dependent Chronic renal disease, stage III COPD Brief History of Present Illness: 73-year-old female presented to the emergency room with atrial fibrillation and RVR. Patient with history of atrial fibrillation on chronic anti coagulation therapy , hypertension, hypothyroidism, diabetes mellitus type 2 insulin dependent, mitral valve replacement, and hyperlipidemia. Patient was to have her colonoscopy today as an outpatient. Prior to coming in to outpatient surgery, she had held her Coumadin for 3 days in preparation for colonoscopy. She had been cleared by cardiology as well for the colonoscopy. In her evaluation by Anesthesia prior to the colonoscopy, the patient was found to have atrial fibrillation with RVR with a rate in the 120s. Anesthesia recommended that the patient be evaluated in the ER to further address. Patient came to the ER for further evaluation. Rate in the 120s. Patient was given Lopressor with improvement. Patient was admitted for further evaluation. On lab white count 8.5, hemoglobin 14.5. INR 1.21. Sodium 138, potassium 4.9, BUN of 16, creatinine 1.28 with a GFR 41. Glucose 231. Chest x-ray unremarkable. EKG shows atrial fibrillation. Rate now around 100. When I saw the patient ER, she appeared comfortable. She denies any chest pain , shortness of breath. She denies any nausea or vomiting. Patient took her prep for colonoscopy last night. Hospital Course: Patient presented with atrial fibrillation with RVR. Patient was to have colonoscopy as an outpatient but anesthesia noted patient with RVR. Patient was seen and evaluated in the emergency room. Patient was admitted for further evaluation. Patient seen and evaluated by Cardiology. Rate better controlled. Cardiology has cleared patient for colonoscopy. Case discussed with surgery. Colonoscopy performed. Colon polyp was removed. Case discussed in detail with surgery. Patient will be discharged home. Continue postop colonoscopy recommendation. Patient follow up with surgery as an outpatient to follow up colonoscopy results in 1-2 weeks. Patient may restart Coumadin 3 mg daily in 2 days. Patient with history of mitral valve replacement and pacemaker, hypertension, hyperlipidemia, COPD, hypothyroidism, diabetes mellitus type 2 insulin dependent , chronic renal disease stage III. This has remained stable. At discharge she will continue with her current medications including metoprolol XL 100 mg daily , lisinopril 5 mg daily, Lipitor 40 mg daily, levothyroxine 100 mcg daily, digoxin 125 mcg daily, Toujeo 26 units daily, Breo one inhalation daily. Restart Coumadin 3 mg daily in 2 days. INR to be followed by her PCP or cardiology as previous. Vital Signs/Physical Exam: Temp Pulse Resp BP Pulse Ox 97.8 F 89 16 110/58 L 98 03/12/19 10:20 03/12/19 10:20 03/12/19 10:03/12/19 10:03/12/19 08:00 General: Alert, In no apparent distress, Oriented x3, Cooperative HEENT: Atraumatic Neck: Supple Respiratory: Clear to auscultation bilaterally, Normal air movement Cardiovascular: Irregular heart rate/rhythm (Atrial fibrillation rate controlled ) Gastrointestinal: Normal bowel sounds, Soft and benign, Non-distended, No masses , No rebound, No guarding Musculoskeletal: No erythema, No tenderness, No warmth Integumentary: No tenderness/swelling, No erythema, No warmth, No cyanosis Neurological: Normal speech, Normal strength at 5/5 x4 extr, Normal tone, Normal affect Laboratory Data at Discharge: WBC 6.5 K/uL (4.3-10.9) D 03/12/19 03:38 Hgb 13.1 g/dL (12.0-15.0) 03/12/19 03:38 Hct 36.7 % (36.0-45.0) 03/12/19 03:38 Plt Count 188 K/uL (152-406) 03/12/19 03:38 PT 14.2 SECONDS (9.5-12.5) H 03/11/19 13:02 INR 1.21 03/11/19 13:02 Sodium 144 mmol/L (136-145) 03/12/19 03:38 Potassium 4.2 mmol/L (3.5-5.1) 03/12/19 03:38 BUN 17 mg/dL (7-18) 03/12/19 03:38 Creatinine 1.02 mg/dL (0.55-1.3) 03/12/19 03:38 Glucose 111 mg/dL (74-106) H 03/12/19 03:38 Magnesium 1.8 mg/dL (1.8-2.4) 03/12/19 03:38 Total Bilirubin 2.1 mg/dL (0.2-1.0) H 03/11/19 13:02 AST 36 U/L (15-37) 03/11/19 13:02 ALT 35 U/L (12-78) 03/11/19 13:02 Alkaline Phosphatase 97 U/L (45-117) 03/11/19 13:02 Home Medications: Aspirin 81 mg PO DAILY 03/11/19 Atorvastatin Calcium [Lipitor] 40 mg PO DAILY 03/11/19 Digoxin [Lanoxin*] 0.125 mg PO DAILY 03/11/19 Fluticasone/Vilanterol [Breo Ellipta 100-25 Mcg INH] 1 spray IH DAILY 03/11/19 Insulin Glargine,Hum.rec.anlog [Toujeo Solostar] 26 units SQ DAILY 03/11/19 Levothyroxine [Synthroid*] 100 mcg PO DAILY 03/11/19 Lisinopril [Prinivil*] 5 mg PO DAILY 03/11/19 Metoprolol Succinate [Toprol Xl] 100 mg PO DAILY 03/11/19 Warfarin Sodium [Coumadin*] 3 mg PO DAILY 03/11/19 Patient Discharge Instructions: 1. Recommend follow up with PCP in 1 week to follow up this hospitalization. 2. Patient presented with atrial fibrillation with RVR. Patient was to have colonoscopy as an outpatient but anesthesia noted patient with RVR. Patient was seen and evaluated in the emergency room. Patient was admitted for further evaluation. Patient seen and evaluated by Cardiology. Rate better controlled. Cardiology has cleared patient for colonoscopy. Case discussed with surgery. Colonoscopy performed. Colon polyp was removed. Case discussed in detail with surgery. Patient will be discharged home. Continue postop colonoscopy recommendation. Patient follow up with surgery as an outpatient to follow up colonoscopy results in 1-2 weeks. Patient may restart Coumadin 3 mg daily in 2 days. 3. Patient with history of mitral valve replacement and pacemaker, hypertension, hyperlipidemia, COPD, hypothyroidism, diabetes mellitus type 2 insulin dependent, chronic renal disease stage III. This has remained stable. At discharge she will continue with her current medications including metoprolol XL 100 mg daily, lisinopril 5 mg daily, Lipitor 40 mg daily, levothyroxine 100 mcg daily, digoxin 125 mcg daily, Toujeo 26 units daily, Breo one inhalation daily. Restart Coumadin 3 mg daily in 2 days. INR to be followed by her PCP or cardiology as previous. Diet: ADA Activity: Fall precautions Followup: Vernon Garibay MD [ACTIVE - CAN ADMIT] - 1 Week Time spent managing pt's care (in minutes): 55
--- NOTE | 2019-03-12 12:43 | ENDO RPT ---
[address], [address] COLONOSCOPY PROCEDURE REPORT EXAM DATE: 03/12/2019 PATIENT NAME: Candice Hunter MR #: [id number] BIRTHDATE: 1945 ATTENDING: Vernon Garibay M.D. STATUS: inpatient ERGONOMIST: Radha Young RN and Mandi Gardner INDICATIONS: The patient is a 73 yr old Female here for a colonoscopy due to Abnormal Cologuard PROCEDURE PERFORMED: Colonoscopy with biopsy - cold polypectomy MEDICATIONS: Per Anesthesia. ESTIMATED BLOOD LOSS: None CONSENT: The patient understands the risks and benefits of the procedure and understands that these risks include, but are not limited to: sedation, allergic reaction, infection, perforation and/or bleeding. Alternative means of evaluation and treatment include, among others: physical exam, x-rays, and/or surgical intervention. The patient elects to proceed with this endoscopic procedure. DESCRIPTION OF PROCEDURE: During intra-op preparation period all mechanical medical equipment was checked for proper function. Hand hygiene and appropriate measures for infection prevention was taken. Procedure, possible complications, alternatives including, but not limited to possibility of bleeding, perforation, tear, infection, sepsis, need for surgery, need for blood transfusion, were explained to the patient. After the risks, benefits and alternatives of the procedure were thoroughly explained, Informed consent was verified, confirmed and timeout was successfully executed by the treatment team. The patient was placed in the left lateral position. A digital rectal exam was performed and revealed no abnormalities of the rectum. After appropriate level of anesthesia, the scope was passed. The EC-[id number] ([id number]) endoscope was introduced through the anus and advanced to the cecum, which was identified by the ileocecal valve. The quality of the prep was poor. The instrument was then slowly withdrawn as the colon was fully examined. Scope withdrawal time was 28 minutes. COLON FINDINGS: A pedunculated polyp was found in the descending colon. Retroflexed views revealed no abnormalities. The scope was then completely withdrawn from the patient and the procedure terminated. ADVERSE EVENTS: There were no complications. IMPRESSIONS: 1. Pedunculated polyp was found in the descending colon 2. Diverticulosis RECOMMENDATIONS: 1. follow-up: office 1 week(s) 2. fiber rich diet 3. await biopsy results 4. increase dietary water 5. no seeds in diet RECALL: Return in 2 year(s) for Colonoscopy. Vernon Garibay M.D. eSigned: Vernon Garibay M.D. 03/12/2019 12:43 PM cc: Jarocho Patricio MD CPT CODES: ICD9 CODES: 211.3 Benign neoplasm of colon PATIENT NAME: Candice Hunter MR#: [id number]
[2019-03-12 14:01] VITALS: BP 114/83; TEMP 97
[2019-03-12 14:54] VITALS: O2SAT 99
--- NOTE | 2019-03-13 01:27 | PN ---
Date of Progress Note: 03/12/2019 History: Ms. Hunter has chronic atrial fibrillation, history of mitral valve replacement, diabetes. She is on metoprolol and digoxin. Coumadin has been held. Received Lovenox at 6:00 p.m. last nigh t. Her heart rate today is in the 70s to 80s. No cardiac symptoms. We will increase her beta block er on an as-needed basis if her heart rate increases, but for now she is cleared for colonoscopy by Penny Garibay. Dr. Berg is aware. We will continue to follow her. IBIS/ANGELICA Voice ID: [id number] Report ID: [id number]
--- OUTSIDE RECORDS SUMMARY | 2019-04-06 19:56 | XMS REPORT ---
:1945 [facility] Address [address] [place] [address] Dr. Cruz [address] [place] [id number] Care Team Providers Name Role Phone Unavailable Unavailable Unavailable Problems This patient has no known problems. Allergies, Adverse Reactions, Alerts This patient has no known allergies or adverse reactions. Medications This patient has no known medications.
== END 2019-03-12 14:55 | disposition home or self-care (01) ==
LOC: ER 12:38 → ERHOLD 14:23 → 4TH 15:12
PROVIDERS: ADMIT Family Medicine; ATTEND Family Medicine
PROC: 0DBM8ZX Excision of Descending Colon, Via Natural or Artificial Opening Endoscopic, Diagnostic (ICD-10-PCS; principal; 2019-03-12 11:00)
DX: I48.20 Chronic atrial fibrillation, unspecified (principal); K63.5 Polyp of colon; K57.90 Diverticulosis of intestine, part unspecified, without perforation or abscess without bleeding; I12.9 Hypertensive chronic kidney disease with stage 1 through stage 4 chronic kidney disease, or unspecified chronic kidney disease; E11.22 Type 2 diabetes mellitus with diabetic chronic kidney disease; N18.3 Chronic kidney disease, stage 3 (moderate); E78.5 Hyperlipidemia, unspecified; E03.9 Hypothyroidism, unspecified; J44.9 Chronic obstructive pulmonary disease, unspecified; R19.5 Other fecal abnormalities; R63.4 Abnormal weight loss; Z68.23 Body mass index [BMI] 23.0-23.9, adult; Z79.01 Long term (current) use of anticoagulants; Z95.2 Presence of prosthetic heart valve; Z95.0 Presence of cardiac pacemaker
CPT/HCPCS: 96361; 93005; 87088; 85025 ×2; 87086; 80048 ×2; 36415 ×2; 83735 ×2; 85610; 80162; 82962 ×3; 80076; 88305; 84443; 87077; 87186; 84484; 83880; 71045; 96375; 96372; 96374; 99285; 45384; J2704; J1160; J3475; J1650 ×2; G0378 ×4; J7030; 71046; 81003; 81015; 85730; J3010

== ENCOUNTER 2019-10-03 09:55 | Emergency (ER) | payer OTHER ==
--- OUTSIDE RECORDS SUMMARY | 2019-10-03 10:21 | XMS REPORT ---
:1945 Author Organization [facility] t Address [address] Cruz [address] [place] [address] Care Team Providers Name Role Phone Unavailable Unavailable Unavailable Problems Condition Condition Condition Status Onset Resolution Last Treatin g Comments Name Details Category Date Date Treatment Clinician Date Type 2 Type 2 Problem Active diabetes diabetes mellitus mellitus with other with other specified specified complicatio complicatio n n Cardiac Cardiac Problem Active pacemaker pacemaker in situ in situ Type 2 Type 2 Problem Active diabetes diabetes mellitus mellitus with other with other diabetic diabetic kidney kidney complicatio complicatio n n Chronic Chronic Problem Active atrial atrial fibrillatio fibrillatio n with RVR n with RVR HTN, goal HTN, goal Problem Active below below 130/80 130/80 Positive Positive Problem Active colorectal colorectal cancer cancer screening screening using using Cologuard Cologuard test test Mixed Mixed Problem Active hyperlipide hyperlipide alexandra alexandra Vitamin D Vitamin D Problem Active deficiency deficiency disease disease Chronic Chronic Problem Active 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 use current use of insulin of insulin Vaginal Vaginal Diagnosis Active yeast yeast infection infection H/O mitral H/O mitral Problem Active valve valve replacement replacement with with mechanical mechanical valve valve Neuropathy 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 Medications This patient has no known medications. Encounters Start End Encounter Admission Attending Care Care Encounter Date/Time Date/Time Type Type Clinicians Facility Department ID 2019-09-30 2019-09-30 [id number] 16:04:00 16:04:00 [facility] Family Medicine Medicine
--- OUTSIDE RECORDS SUMMARY | 2019-10-03 10:23 | XMS REPORT ---
:1945 Author Organization [employer] Care Team Providers Name Role Phone Jarocho Patricio Provider Role Unavailable Allergies No Known Allergies Problems Problem Type Condition Code Onset Dates Condition Statu s Problem Type 2 diabetes mellitus with other E11.69 Active specified complication Problem Cardiac pacemaker in situ Z95.0 Ac tive Problem Type 2 diabetes mellitus with other E11.29 Active diabetic kidney complication Problem Chronic atrial fibrillation with RVR I48.2 Active Problem HTN, goal below 130/80 I10 Activ e Problem Positive colorectal cancer screening R19.5 Active using Cologuard test Problem Mixed hyperlipidemia E78.2 Active Problem Vitamin D deficiency disease E55.9 Active Problem Chronic anticoagulation Z79.01 Acti ve Problem buttermaker current use of insulin Z79.4 Active Assessment Vaginal yeast infection B37.3 Acti ve Problem H/O mitral valve replacement with Z95.2 Active mechanical valve Problem 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
--- OUTSIDE RECORDS SUMMARY | 2019-10-03 10:23 | XMS REPORT | Summary of Care ---
:1945 Author Organization [facility] - Health Address [address] [place] [address] Care Team Providers Name Role Phone Arlene Crockett Primary Care Provider Encounter Details Date Type Department Care Team Description 07/19/2019 Orders Only [facility] Doctor Unassigned, No [address] [facility] [place] [address] [address] [place] [address] Allergies Active Allergy Reactions Severity Noted Date Comments Iodine Itching, Rash 02/22/2013 Sulfa (Sulfonamide Antibiotics) Itching 3 documented as of this encounter (statuses as of 09/12/2019) Medications Medication Sig Dispensed Refills Start Date End Date Status lisinopril (ZESTRIL) 5 Take by mouth. 0 Active mg tablet ergocalciferol, Take 1 capsule by 12 capsule 0 05/03/2016 Active vitamin d2, (VITAMIN mouth weekly. D2) 50,000 unit capsuleIndications: Vitamin D deficiency levothyroxine Take 1 tablet by 90 tablet 3 05/03/2016 Active (SYNTHROID) 112 mcg mouth every tabletIndications: morning. Primary hypothyroidism blood sugar diagnostic Use as directed, 300 Strip 3 08/24/2016 Active (ONETOUCH VERIO) TID, DX:E11.9 stripIndications: Type 2 diabetes, uncontrolled, with neuropathy lancets (ONE TOUCH Use as directed, 300 Each 3 08/24/2016 Active DELICA) 33 gauge TID, DX:E11.9 MiscIndications: Type 2 diabetes, uncontrolled, with neuropathy Insulin [place], Use 4 times daily 360 Each 3 08/24/2016 Active Disposable, (HOA PEN NEEDLE) 32 gauge x 5/32" NdleIndications: Type 2 diabetes, uncontrolled, with neuropathy warfarin 2 mg tablet Take 1 tablet by 30 tablet 1 11/15/2018 Active mouth every evening. fluticasone Inhale 1 Puff 0 Acti ve propion-salmeterol every 12 (twelve) (ADVAIR DISKUS) 250-50 hours. mcg/dose inhalation disk aspirin 81 mg chewable Take 81 mg by 0 Active tablet mouth daily. metoprolol succinate Take 1 tablet by 180 tablet 1 11/19/2018 Active XL 100 mg 24 hr mouth 2 (two) tabletIndications: DAVISON times daily. (dyspnea on exertion) digoxin 125 mcg Take 1 tablet by 90 tablet 1 11/19/2018 Active tabletIndications: DAVISON mouth daily. (dyspnea on exertion) azelastine 137 mcg Use 1 [place] in 30 mL 2 12/06/2018 Active (0.1 %) nasal each nostril 2 sprayIndications: (two) times Seasonal allergic daily. Use in rhinitis due to pollen each nostril as directed ciclopirox 8 % Apply to area(s) 6.6 mL 3 12/06/2018 Active solutionIndications: at bedtime. Apply Onychomycosis to dry Nails qhs. Reapply nightly. On day 7 remove with alcohol pad, file nails. Repeat. insulin glargine U-300 inject 20 Units 15 mL 2 12/06/2018 Active conc (TOUJEO SOLOSTAR under the skin U-300 INSULIN) 300 daily. If FBG > unit/mL (1.5 mL) 130, recommend InPnIndications: Type injecting 23 2 diabetes mellitus units under skin with diabetic daily. neuropathy, with long-term current use of insulin atorvastatin 40 mg Take 1 tablet by 90 tablet 1 12/12/2018 Active tabletIndications: mouth at bedtime. Dyslipidemia loratadine 10 mg Take 1 tablet by 30 tablet 3 12/18/2018 Active tabletIndications: mouth daily. Chronic nonintractable headache, unspecified headache type, Rhinorrhea documented as of this encounter (statuses as of 09/12/2019) Active Problems Problem Noted Date Atrial fibrillation with RVR 11/10/2018 H/O mitral valve replacement with mechanical valve Chronic anticoagulation 11/10/2018 Essential hypertension 11/10/2018 S/P placement of cardiac pacemaker 11/10/2018 PAF (paroxysmal atrial fibrillation) 11/08/2018 Supratherapeutic INR 02/20/2018 Dyslipidemia 05/03/2016 Vitamin D deficiency 05/03/2016 Proteinuria 05/03/2016 Neuropathy 10/27/2015 Primary hypothyroidism 04/22/2015 Type 2 diabetes, uncontrolled, with neuropathy 015 documented as of this encounter (statuses as of 09/12/2019) Resolved Problems Problem Noted Date Resolved Date HLD (hyperlipidemia) 10/27/2015 05/03/2016 documented as of this encounter (statuses as of 09/12/2019) Social History Tobacco Use Types Packs/Day Years Used Date Former Smoker Cigarettes 1 30 Quit: 11/16/18 92 Smokeless Tobacco: Never Used Alcohol Use Drinks/Week oz/Week Comments Never 0 Standard drinks or equivalent 0.0 Alcohol Habits Answer Date Recorded How often do you have a drink containing alcohol? Never 11/16/2018 How many drinks containing alcohol do you have on a typical Not asked day when you are drinking? How often do you have six or more drinks on one occasion? No t asked Sex Assigned at Date Recorded Not on file Job Start Date Occupation Industry Not on file Not on file Not on file Travel History Travel Start Travel End No recent travel history available. documented as of this encounter Last Filed Vital Signs Not on filedocumented in this encounter Plan of Treatment Health Maintenance Due Date Last Done Comments HEPATITIS C (HCV) SCREEN 1945 Zoster Recombinant Vaccine 1997 (SHINGRIX) (1 of 2) Osteoporosis Screening 2012 PNEUMOCOCCAL VACCINES 65+ 2012 (1 of 2 - PCV13) Breast Cancer Screening 11/10/2017 11/10/2016 (MAMMOGRAM) INFLUENZA VACCINE (#1) 2019 HgA1C 05/10/2019 11/08/2018, 08/24/2016, 05/03/2016, Additional history exists CREATININE (SERUM) 11/12/2019 11/11/2018, 11/09/2018, 11/09/2018, Additional history exists EYE EXAM 12/05/2019 12/04/2018 DTaP,Tdap,and Td Vaccines 12/07/2019 Postpo iram from (1 - Tdap) 1958 (Refu sed) FOOT EXAM 12/07/2019 12/06/2018, 12/06/2018, 12/06/2018 LDL-C 12/07/2019 12/06/2018, 05/03/2016, 10/27/2015, Additional history exists URINE MICROALBUMIN 12/07/2019 12/06/2018, 10/27/2015 Medicare Wellness Visit 12/19/2019 12/18/2018 COLONOSCOPY 12/10/2024 12/10/2014 documented as of this encounter Implants Implanted Type Area Grain Farmer Device Identifier Shelf Exp iration Model / Date Serial / L ot Pacemaker PACEMAKER documented as of this encounter Procedures Procedure Name Priority Date/Time Associated Diagnosis Comme nts AUTHORIZATION FOR RELEASE Routine 07/19/2019 12:01 AM OF PHI TALENT ACQUISITION CONSULTANT documented in this encounter Results Not on filedocumented in this encounter Insurance Payer Benefit Plan / Subscriber ID Effective Phone Address [facility] [id number] 2018-Pres Medica re HEALTHCARE - HEALTHCARE ent Adv HM O MANAGED DUAL COMPLETE MEDICARE HMO TMHP MEDICAID OF xxxxxxxxx 2018-Pres [phone] [place] [id number] [place] [address] documented as of this encounter Advance Directives Name Relationship Healthcare Agent Communication Relationship Christina Lozano Child Primary healthcare agent [email or web address]
--- NOTE | 2019-10-03 12:12 | ER ---
Nurse's Notes [facility] Name: Candice Hunter Age: 74 yrs Sex: Female : 1945 Arrival Date: 10/03/2019 Time: 09:56 Bed 20 Private MD: Jarocho Patricio Diagnosis: Candidiasis;Candidiasis of vulva and vagina Presentation: 10/02 10:08 Chief complaint: Patient states: Was recently treated for a UTI and received Diflucan rb1 because her PCP thought she may have a yeast infection. C/o burning with urination and vaginal itching. Coronavirus screen: Proceed with normal triage. Ebola Screen: Patient negative for fever greater than or equal to 101.5 degrees Fahrenheit, and additional compatible Ebola Virus Disease symptoms. Initial Sepsis Screen: Does the patient meet any 2 criteria? No. Patient's initial sepsis screen is negative. Risk Assessment: Do you want to hurt yourself or someone else? Patient reports no desire to harm self or others. Onset of symptoms is unknown. 10:08 Method Of Arrival: Ambulatory rb1 10:08 Acuity: LITA 3 rb1 10:08 Initial Sepsis Screen: Does the patient have a suspected source of infection? Yes: Skin rb1 breakdown/wound. Triage Assessment: 10:08 General: Appears in no apparent distress. comfortable, Behavior is calm, cooperative. rb1 Pain: Complains of pain in vaginal Pain currently is 9 out of 10 on a pain scale. Quality of pain is described as burning. Neuro: Level of Consciousness is awake, alert, obeys commands, Oriented to person, place, time, situation. Cardiovascular: Capillary refill < 3 seconds. Respiratory: Airway is patent Respiratory effort is even, unlabored, Respiratory pattern is regular, symmetrical. 10:08 GI: Reports diarrhea. : redness noted to the labia. Derm: Skin is pink, warm \T\ dry. rb1 Historical: - Allergies: 10:08 Iodine; rb1 10:08 Sulfa (Sulfonamide Antibiotics); rb1 - Home Meds: 10:08 aspirin 81 mg Oral chew 1 tab once daily [Active]; atorvastatin 40 mg Oral tab 1 tab rb1 once daily [Active]; Breo Ellipta 100-25 mcg/dose inhalation dsdv 1 puff once daily [Active]; digoxin 125 mcg Oral tab 1 tab once daily [Active]; levothyroxine 100 mcg tab 1 tab once daily [Active]; metoprolol succinate 100 mg Oral Tb24 1 tab once daily [Active]; Toujeo SoloStar 300 unit/mL (1.5 mL) subcutaneous inpn 26 units [Active]; warfarin 3 mg Oral tab 1 tab once daily [Active]; - PMHx: 10:08 Atrial Fib; CHF; COPD; Heart Murmur; Hypertension; rb1 - PSHx: 10:08 heart valve replacement; ovarian cyst, right ovary; Cholecystectomy; ; rb1 - Immunization history:: Adult Immunizations up to date. - Social history:: Smoking status: Patient/guardian denies using. Screenin:08 Abuse screen: Denies threats or abuse. Nutritional screening: No deficits noted. rb1 Tuberculosis screening: No symptoms or risk factors identified. Fall Risk None identified. Assessment: 10:08 General: See triage assessment. rb1 11:08 Reassessment: Patient appears in no apparent distress at this time. No changes from rb1 previously documented assessment. 12:00 Reassessment: No changes from previously documented assessment. Patient and/or family rb1 updated on plan of care and expected duration. Pain level reassessed. Patient is alert, oriented x 3, equal unlabored respirations, skin warm/dry/pink. Vital Signs: 10:08 BP 107 / 78; Pulse 73; Resp 17; Temp 98.6(O); Pulse Ox 95% on R/A; Weight 58.97 kg (R); rb1 Height 5 ft. 10 in. (177.80 cm) (R); Pain 9/10; 11:00 BP 116 / 71; Pulse 92; Resp 16; Pulse Ox 94% on R/A; rb1 12:00 BP 119 / 62; Pulse 69; Resp 15; Pulse Ox 95% on R/A; rb1 10:08 Body Mass Index 18.65 (58.97 kg, 177.80 cm) rb1 ED Course: 09:56 Patient arrived in ED. ag5 09:57 Jarocho Patricio DO is Private Physician. ag5 09:57 Markos Williamson MD is Attending Physician. kdr 10:08 Nilda Jennings, RN is Primary Nurse. rb1 10:08 Arm band placed on right wrist. rb1 10:08 Patient has correct armband on for positive identification. Bed in low position. Call rb1 light in reach. Side rails up X 1. Pulse ox on. NIBP on. Warm blanket given. 10:50 Triage completed. rb1 12:10 Jarocho Patricio DO is Referral Physician. kdr 12:36 No provider procedures requiring assistance completed. Patient did not have IV access rb1 during this emergency room visit. Administered Medications: No medications were administered Outcome: 12:11 Discharge ordered by . kdr 12:36 Discharged to home ambulatory, with walker rb1 12:36 Condition: stable 12:36 Discharge instructions given to patient, Instructed on discharge instructions, follow up and referral plans. medication usage, Demonstrated understanding of instructions, follow-up care, medications, Prescriptions given X 2. 12:36 Patient left the ED. rb1 Signatures: Markos Williamson MD MD kdr Nilda Jennings, RN RN rb1 Jeff Howell ag5 Corrections: (The following items were deleted from the chart) 12:58 12:57 Patient left the ED. rb1 rb1
--- NOTE | 2019-10-03 12:12 | EDPHYS ---
Physician Documentation [facility] Name: Candice Hunter Age: 74 yrs Sex: Female : 1945 Arrival Date: 10/03/2019 Time: 09:56 Bed 20 Private MD: [facility] ED Physician Markos Williamson HPI: 10/02 15:42 This 74 yrs old Female presents to ER via Ambulatory with complaints of kdr Vaginal Problem. 15:42 The patient presents with perineal itching, of the meatus, right labia minora, left kdr labia minora and upper labia, pelvic pain, that is located in/on the meatus, right labia minora, left labia minora and upper labia. Onset: The symptoms/episode began/occurred gradually, 1 month(s) ago. Modifying factors: The symptoms are alleviated by nothing, the symptoms are aggravated by pressure, urinating, The patient has had persistent pain for the past month and has tried various creams and remedies without success.. Associated signs and symptoms: The patient has no apparent associated signs or symptoms. Severity of symptoms: At their worst the symptoms were moderate, in the emergency department the symptoms are unchanged. The patient has not experienced similar symptoms in the past. The patient has not recently seen a physician. Historical: - Allergies: 10:08 Iodine; rb1 10:08 Sulfa (Sulfonamide Antibiotics); rb1 - Home Meds: 10:08 aspirin 81 mg Oral chew 1 tab once daily [Active]; atorvastatin 40 mg Oral tab 1 tab rb1 once daily [Active]; Breo Ellipta 100-25 mcg/dose inhalation dsdv 1 puff once daily [Active]; digoxin 125 mcg Oral tab 1 tab once daily [Active]; levothyroxine 100 mcg tab 1 tab once daily [Active]; metoprolol succinate 100 mg Oral Tb24 1 tab once daily [Active]; Toujeo SoloStar 300 unit/mL (1.5 mL) subcutaneous inpn 26 units [Active]; warfarin 3 mg Oral tab 1 tab once daily [Active]; - PMHx: 10:08 Atrial Fib; CHF; COPD; Heart Murmur; Hypertension; rb1 - PSHx: 10:08 heart valve replacement; ovarian cyst, right ovary; Cholecystectomy; ; rb1 - Immunization history:: Adult Immunizations up to date. - Social history:: Smoking status: Patient/guardian denies using. ROS: 15:42 Positive for pelvic pain, burning with urination, vaginal itching. kdr 15:42 Constitutional: Negative for fever, chills, and weight loss. Exam: 15:42 Constitutional: This is a well developed, well nourished patient who is awake, alert, kdr and in no acute distress. Head/Face: Normocephalic, atraumatic. 15:42 : Pelvic Exam: External exam: erythema is noted, no appreciated Bartholin's cyst, not excoriated, no evidence of foreign body, no lesions, no ulcerations, no warts seen, discharge, is not appreciated. 15:42 : The patient had caked on cream on the medial aspect of labia minora. kdr Vital Signs: 10:08 BP 107 / 78; Pulse 73; Resp 17; Temp 98.6(O); Pulse Ox 95% on R/A; Weight 58.97 kg (R); rb1 Height 5 ft. 10 in. (177.80 cm) (R); Pain 9/10; 11:00 BP 116 / 71; Pulse 92; Resp 16; Pulse Ox 94% on R/A; rb1 12:00 BP 119 / 62; Pulse 69; Resp 15; Pulse Ox 95% on R/A; rb1 10:08 Body Mass Index 18.65 (58.97 kg, 177.80 cm) rb1 MDM: 12:11 Patient medically screened. kdr 15:49 Data reviewed: vital signs, nurses notes. Counseling: I had a detailed discussion with kdr the patient and/or guardian regarding: the historical points, exam findings, and any diagnostic results supporting the discharge/admit diagnosis, the need for outpatient follow up. 10/02 11:11 Order name: Urine Dipstick-Ancillary (obtain specimen); Complete Time: 11:26 kdr Administered Medications: No medications were administered Disposition: 10/03/19 12:11 Discharged to Home. Impression: Candidiasis, Candidiasis of vulva and vagina. - Condition is Stable. - Discharge Instructions: Vaginal Yeast Infection, Adult, Vaginitis, [id number], Skin Yeast Infection. - Prescriptions for Nystatin- Triamcinolone 100,000-0.1 unit/g-% Topical Cream - apply 1 application by TOPICAL route 2 times per day; 1 tube. Tramadol 50 mg Oral Tablet - take 1 tablet by ORAL route every 8 hours as needed; 12 tablet. - Medication Reconciliation Form, Thank You Letter, Antibiotic Education form. - Follow up: Jarocho Patricio DO; When: 2 - 3 days; Reason: If symptoms return, Further diagnostic work-up, Recheck today's complaints, Continuance of care, Re-evaluation by your physician. - Problem is new. - Symptoms have improved. - Notes: Apply the cream very lightly twice a day until your symptoms have resolved Signatures: Markos Williamson MD MD kdr Nilda Jennings RN RN rb1 Corrections: (The following items were deleted from the chart) 12:57 12:11 10/03/2019 12:11 Discharged to Home. Impression: Candidiasis; Candidiasis of rb1 vulva and vagina. Condition is Stable. Forms are Medication Reconciliation Form, Thank You Letter, Antibiotic Education, Prescription Opioid Use. Follow up: Jarocho Patricio; When: 2 - 3 days; Reason: If symptoms return, Further diagnostic work-up, Recheck today's complaints, Continuance of care, Re-evaluation by your physician. Problem is new. Symptoms have improved. kdr
[2019-10-04 02:21] VITALS: TEMP 98.6
[2019-10-04 02:24] VITALS: BP 119/62; O2SAT 95
== END 2019-10-03 12:57 | disposition home or self-care (01) ==
LOC: ER 09:55
DX: B37.3 Candidiasis of vulva and vagina (principal); I10 Essential (primary) hypertension; I48.91 Unspecified atrial fibrillation; J44.9 Chronic obstructive pulmonary disease, unspecified; I50.9 Heart failure, unspecified; Z79.01 Long term (current) use of anticoagulants; Z79.82 Long term (current) use of aspirin; Z88.2 Allergy status to sulfonamides; Z95.4 Presence of other heart-valve replacement; Z91.048 Other nonmedicinal substance allergy status
CPT/HCPCS: 99283

== ENCOUNTER 2020-04-20 13:31 | Inpatient (IN) | payer OTHER ==
--- OUTSIDE RECORDS SUMMARY | 2020-04-20 14:00 | XMS REPORT | Continuity of Care Document ---
:1945 Author Organization [facility] t Address [address] [place] [address] Care Team Providers Name Role Phone Doctor Unassigned, Name Attending Clinician Unavailable Zane CALVILLO, A Attending Clinician Unavailable Marin MESA, K.H. Attending Clinician Problems Condition Condition Condition Status Onset Resolution Last Treating Co mments Source Name Details Category Date Date Treatment Clinician Date Type 2 Type [address] [facility] diabetes diabetes [facility] - mellitus mellitus Memori a with other with other l specified specified Outp ati complicati complicati en t on on Clinics Cardiac Cardiac Problem Active [facility] pacemaker pacemaker Luke s - in situ in situ [facility] Type 2 Type [address] [facility] diabetes diabetes [facility] - mellitus mellitus Memori a with other with other l diabetic diabetic Outpat i kidney kidney ent complicati complicati Cl inics on on Chronic Chronic Problem Active [facility] atrial atrial [facility] - fibrillati fibrillati Me moria on with on with l RVR RVR Outpati ent Clinics HTN, goal HTN, goal Diagnosis Active [facility] below below [facility] - 130/80 130/80 Memoria l [facility] Positive Positive Problem Active [facility] colorectal colorectal Eliana s - cancer cancer [facility] [place] screening screening l using using Outpati Cologuard Cologuard ent test test Clinics Mixed Mixed Diagnosis Active [facility] hyperlipid hyperlipid Eliana kes - emia emia [facility] [place] [facility] Vitamin D Vitamin D Problem Active [facility] deficiency deficiency Eliana kes - disease disease [facility] [place] [facility] Chronic Chronic Problem Active [facility] anticoagul anticoagul Eliana kes - ation ation Memoria l [facility] ent Clinics intermediate frame tender intermediate frame tender Diagnosis Active [facility] current current [facility] - use of use of Memoria insulin insulin l [facility] H/O mitral H/O mitral Problem Active [facility] valve valve [facility]ukes - replacemen replacemen Me moria t with t with l mechanical mechanical Ou tpati valve valve ent Clinics Neuropathy Neuropathy Problem Active [facility] due to due to [facility] - type 2 type 2 Memoria diabetes diabetes l mellitus mellitus Outpat i ent Clinics Hypothyroi Hypothyroi Problem Active [facility] dism, dism, [facility]ukes - unspecifie unspecifie Me moria d type d type l [facility] ent [facility] Chronic Chronic Problem Active [facility] obstructiv obstructiv Eliana kes - e e Memoria pulmonary pulmonary l disease, disease, Outpat i unspecifie unspecifie en t d COPD d COPD Clinics type type Recurrent Recurrent Diagnosis Active [facility] UTI UTI [facility] - Memoria l [facility] ent Clinics Former Former Diagnosis Active [facility] heavy [facility] - [facility] CKD CKD Problem Active [facility] (chronic (chronic [facility] - kidney kidney Memoria disease) disease) l stage 3, stage 3, Outpat i GFR 30-59 GFR 30-59 ent ml/min ml/min Clinics Proteinuri Proteinuri Diagnosis Active [facility] a, a, [facility]ukes - unspecifie unspecifie Me moria d d l [facility] ent [facility] GERD GERD Diagnosis Active [facility] without without [facility]ukes - esophagiti esophagiti Me moria s s l [facility] ent [facility] Allergies, Adverse Reactions, Alerts Allergy Allergy Status Severity Reaction(s) Onset Inactive Treating Comm ents Source Name Type Date Date Clinician Iodine Adverse Active Info Not [facility] Reaction Available [facility] - Memoria [facility] Medications Ordered Filled Start Stop Current Ordering Indication Dosage Frequency Signature Comments Components Source Medication Medication Date Date Medication? Clinician (SIG) Name Name Victoza Victoza Yes Jarocho as [facility] Patricio directed [facility] - 00:00: Memoria 00 [facility] Omeprazole Omeprazole 0 Yes Jarocho [address] [facility] 01-14 Patricio 30 minutes [facility]ukes - 00:00: before Memoria 00 morning l meal [facility] ent Clinics Metoprolol Metoprolol Yes Jarocho [address] [facility] Succinate Succinate Patricio Luke s - ER ER Memoria l Outpati ent Clinics Warfarin Warfarin Yes Jarocho [address] Sodium Sodium Patricio [facility] - Memoria l Outpati ent Clinics Aspir-Low Aspir-Low Yes Jarocho [address] [facility] Patricio [facility] - Memoria l Outpati ent Clinics Lisinopril Lisinopril Yes Jarocho take [address] [facility] Patricio tablet by Lukes - mouth Memoria every day l Outpati ent Clinics Digoxin Digoxin Yes Jarocho take 1 [facility] Patricio tablet by [facility] - mouth Memoria every day l Outpati ent Clinics Atorvastati Atorvastati Yes Jarocho [address] [facility] n Calcium n Calcium Patricio Luke s - Memoria l Outpati ent Clinics [employer] Krueger Yes Jarocho inject [address] [facility] [address] SoloStar SoloStar Patricio units [facility]ukes - subcutaneo Memoria usly each l morning Outpati ent Clinics Advair Advair Yes Jarocho as [facility] Diskus Diskus Patricio directed [facility] - Memoria l Outpati ent Clinics Levothyroxi Levothyroxi Yes Jarocho TAKE [address] [facility] ne Sodium ne Sodium Patricio TABLET BY [facility]ukes - MOUTH Memoria EVERY l MORNING ON Outpati EMPTY ent STOMACH Clinics Levothyroxi Levothyroxi Yes Jarocho [address] [facility] ne Sodium ne Sodium Patricio on an Tena es - empty Memoria stomach in l the Outpati morning ent Clinics Procedures This patient has no known procedures. Encounters Start End Encounter Admission Attending Care Care Encounter Source Date/Time Date/Time Type Type Clinicians Facility Department ID 2020-01-15 2020-01-15 Outpatient Anna Felton [id number] [facility] 14:15[facility] 2019-12-10 2019-12-10 Outpatient Anna Felton [id number] [address] 10:30:00 10:30:00 t Specialty/U Eliana kes - Specialty rology [facility] a /Urology Clinic l Clinic [facility] 2019-12-09 2019-12-09 Outpatient Anna Felton [id number] [facility] 09:01[facility]00 09[facility]01[facility] 2019-11-27 2019-11-27 [facility] [id number] [facility] 14:31:00 14:31:00 t Specialty/U Eliana kes - Specialty rology Memori a /Urology Clinic l Clinic Outpati ent Clinics 2019-11-08 2019-11-08 [facility] [id number] 11:19:00 11:19:00 t Specialty/U Eliana kes - Specialty rology Memori a /Urology Clinic l Clinic Outpati ent Clinics 2019-10-31 2019-10-31 [facility] [id number] 14:15:00 14:15:00 t Specialty/U Eliana kes - Specialty rology Memori a /Urology Clinic l Clinic Outpati ent Clinics 2019-10-17 2019-10-17 [facility] [id number] [facility] 15:00:00 15:00:00 t Specialty/U Eliana kes - Specialty rology Memori a /Urology Clinic l Clinic Outpati ent Clinics 2019-10-17 2019-10-17 [facility] [id number] 14:00:00 14:00:00 t [employer] s - Drive [facility] l Medicine Outpati ent Clinics 2019-10-17 2019-10-17 [facility] [id number] 14:00:00 14:00:00 t [employer] s - Drive [facility] l Medicine Outpati ent Clinics 2019-09-30 2019-09-30 [facility] [id number] 16:04:00 16:04:00 t [employer] s - Drive [facility] Medicine Outpati ent Clinics 2019-07-19 2019-07-19 Orders Doctor MCGEE [id number] 00:00:00 00:00:00 Only UnassignedTIMO [id number] [place] [id number] 2019-02-04 2019-02-04 Telephone ARELY Degroot [id number] 00:00:00 00:00:00 Zuleyka [place] [id number] [place] [id number] 2018-11-19 2019-01-16 Office Marin [facility] [id number] 10:36:16 22:09:06 Visit Ibis Nava [id number] [place] [id number] [facility] [id number] [facility] Building Results This patient has no known results.
[2020-04-20 14:24] LABS: Absolute Lymphocytes (CBC) 1.4 K/uL (0.7-4.9); Hematocrit 41.7 % (36.0-45.0); Lymphocytes % 13.9 % (15.3-44.8); MPV 9.6 fL (7.6-11.3); RBC Red Blood Cell Count 4.53 M/uL (3.86-4.86)
[2020-04-20 14:32] LABS: Protime INR 1.39
[2020-04-20] MEDS ORDERED: NA CHLORIDE 0.9% 1,000 ML ONE ×3 (14:36→17:02)
[2020-04-20 14:56] LABS: ALT/SGPT 29 U/L (12-78); AST/SGOT 23 U/L (15-37); Alkaline Phosphatase 87 U/L (45-117); BUN Blood Urea Nitrogen 23 mg/dL (7-18); Bicarbonate 25 mmol/L (21-32); Bilirubin Direct 0.2 mg/dL (0-0.2); Glucose Level 161 mg/dL (74-106); Magnesium 2.1 mg/dL (1.8-2.4); NT PRO-BNP 4826 pg/mL (<125); Potassium 4.6 mmol/L (3.5-5.1); Protein, Total 7.3 g/dL (6.4-8.2); Sodium Level 142 mmol/L (136-145); Troponin (Emerg Dept Use Only) < 0.02 ng/mL (0.0-0.045)
--- NOTE | 2020-04-20 15:07 | RAD REPORT ---
EXAM DESCRIPTION: RAD - Chest Single View - 04/20/2020 2:40 pm CLINICAL HISTORY: SOBhypotension, chest pain COMPARISON: November 08, 2019 TECHNIQUE: AP portable chest image was obtained 04/20/2020 2:40 pm . FINDINGS: Lungs are fibrotic in a pattern similar to comparison. No peripheral mass or consolidation . No failure or volume overload. Stable cardiomegaly is present with no vascular engorgement. Single lead pacemaker is in place. Joe l replacement surgical changes again noted. No measurable pleural effusion and no pneumothorax. No ac stella bony abnormality seen. No acute aortic findings suspected. IMPRESSION: Chronic interstitial lung disease. No acute cardiopulmonary finding. No significant change from comparison.
--- NOTE | 2020-04-20 15:36 | EDPHYS ---
Physician Documentation [facility] Name: Candice Hunter Age: 74 yrs Sex: Female : 1945 Arrival Date: 04/20/2020 Time: 13:33 Bed 30 Private MD: [facility] ED Physician Fredy Barbosa HPI: 04/20 16:35 This 74 yrs old Female presents to ER via Ambulatory with complaints of Blood jr8 Pressure Problem, Dizziness. 16:35 Patient stated that she is not eating well at home. Stated that she lives by herself. jr8 Has been weak and more fatigued lately. Now dizzy. Patient hypotensive upon arrival. Has no family to help her at home but does have someone come over to pickle cutter and someone to take her to appointments. Stated that she cannot bathe or cook for herself any longer . Severity of symptoms: At their worst the symptoms were moderate in the emergency department the symptoms are unchanged. The patient has not experienced similar symptoms in the past. It is unknown whether or not the patient has recently seen a physician. Historical: - Allergies: 13:47 Sulfa (Sulfonamide Antibiotics); iw 13:47 Iodine; iw - Home Meds: 14:00 digoxin 125 mcg Oral tab 1 tab once daily [Active]; warfarin 3 mg Oral tab 1 tab once aa5 daily [Active]; Toujeo SoloStar 300 unit/mL (1.5 mL) subcutaneous inpn 26 units [Active]; metoprolol succinate 100 mg Oral Tb24 1 tab once daily [Active]; levothyroxine 100 mcg tab 1 tab once daily [Active]; Breo Ellipta 100-25 mcg/dose inhalation dsdv 1 puff once daily [Active]; atorvastatin 40 mg Oral tab 1 tab once daily [Active]; aspirin 81 mg Oral chew 1 tab once daily [Active]; - PMHx: 13:47 Atrial Fib; CHF; COPD; Heart Murmur; Hypertension; iw 14:00 TIA; aa5 - PSHx: 13:47 ovarian cyst, right ovary; Cholecystectomy; ; iw 14:00 Mitral Valve Replacement 2010; aa5 - Immunization history:: Adult Immunizations unknown. - Social history:: Smoking status: Patient denies any tobacco usage or history of. ROS: 16:35 Eyes: Negative for injury, pain, redness, and discharge, ENT: Negative for injury, jr8 pain, and discharge, Neck: Negative for injury, pain, and swelling, Cardiovascular: Negative for chest pain, palpitations, and edema, Respiratory: Negative for shortness of breath, cough, wheezing, and pleuritic chest pain, Abdomen/GI: Negative for abdominal pain, nausea, vomiting, diarrhea, and constipation, Back: Negative for injury and pain, MS/Extremity: Negative for injury and deformity, Skin: Negative for injury, rash, and discoloration. 16:35 Constitutional: Positive for fatigue. 16:35 Neuro: Positive for dizziness, weakness. Exam: 16:35 Eyes: Pupils equal round and reactive to light, extra-ocular motions intact. Lids and jr8 lashes normal. Conjunctiva and sclera are non-icteric and not injected. Cornea within normal limits. Periorbital areas with no swelling, redness, or edema. ENT: Nares patent. No nasal discharge, no septal abnormalities noted. Tympanic membranes are normal and external auditory canals are clear. Oropharynx with no redness, swelling, or masses, exudates, or evidence of obstruction, uvula midline. Mucous membranes moist. Neck: Trachea midline, no thyromegaly or masses palpated, and no cervical lymphadenopathy. Supple, full range of motion without nuchal rigidity, or vertebral point tenderness. No Meningismus. Cardiovascular: Irregularly Irregular rhythm present. Slight systolic murmur present with attenuation of mitral valve. Normal PMI, no JVD. No pulse deficits. Respiratory: Lungs have equal breath sounds bilaterally, clear to auscultation and percussion. No rales, rhonchi or wheezes noted. No increased work of breathing, no retractions or nasal flaring. Abdomen/GI: Soft, non-tender, with normal bowel sounds. No distension or tympany. No guarding or rebound. No evidence of tenderness throughout. Back: No spinal tenderness. No costovertebral tenderness. Full range of motion. MS/ Extremity: Pulses equal, no cyanosis. Neurovascular intact. Full, normal range of motion. Neuro: Awake and alert, GCS 15, oriented to person, place, time, and situation. Cranial nerves II-XII grossly intact. Motor strength 5/5 in all extremities. Sensory grossly intact. 16:35 Skin: Appearance: Color: normal in color, pink, Temperature: normal temperature, Moisture: dry, Turgor: is poor. Vital Signs: 13:44 BP 85 / 58; Pulse 54; Resp 16; Temp 97.0; Pulse Ox 100% on R/A; Pain 4/10; iw 14:02 BP 100 / 75; Pulse 100; aa5 14:26 BP 88 / 68; Pulse 90; Resp 16 S; Pulse Ox 100% on R/A; aa5 14:40 BP 103 / 79; Pulse 99; Resp 16 S; Pulse Ox 97% on R/A; aa5 15:10 BP 99 / 60; Pulse 86; Resp 16 S; Pulse Ox 99% on R/A; aa5 15:38 BP 88 / 66; Pulse 91; Resp 15 S; Pulse Ox 100% on R/A; aa5 15:50 BP 95 / 73; Pulse 90; Resp 16 S; Pulse Ox 100% on R/A; aa5 16:00 BP 96 / 71; Pulse 70; Resp 16 S; Temp 97.5(TE); Pulse Ox 100% on R/A; aa5 16:10 BP 80 / 68; Pulse 103; Resp 18 S; Pulse Ox 100% on R/A; aa5 16:30 BP 109 / 69; Pulse 60; Resp 16 S; Pulse Ox 100% on R/A; aa5 16:45 BP 126 / 41; Pulse 103; Resp 16 S; Pulse Ox 100% on R/A; aa5 17:00 BP 103 / 83; Pulse 99; aa5 17:15 BP 102 / 66; Pulse 98; Resp 16 S; Pulse Ox 100% on R/A; aa5 17:23 BP 92 / 67; Pulse 83; Resp 16 S; Pulse Ox 100% on R/A; aa5 17:45 BP 109 / 53; Pulse 80; Resp 16 S; Temp 97.5(TE); Pulse Ox 100% on R/A; aa5 17:59 aa5 18:00 BP 102 / 76; Pulse 80; Resp 18 S; Pulse Ox 100% on R/A; aa5 15:38 PA was notiifed of continued hypotension and notified of NS bolus completion. aa5 17:59 Bladder scan: TV 115mls. Dr. Berg was notified. aa5 MDM: 13:54 Patient medically screened. jr8 16:35 Data reviewed: vital signs, nurses notes, lab test result(s), EKG, radiologic studies, [facility] plain films. Data interpreted: Pulse oximetry: on room air is 100 %. Interpretation: normal. Counseling: I had a detailed discussion with the patient and/or guardian regarding: the historical points, exam findings, and any diagnostic results supporting the discharge/admit diagnosis, lab results, radiology results, the need for further work-up and treatment in the hospital. ED course: Patient despite two boluses had very little BP change. Patient with HF history. Still needs to have hydration. Needs to be admitted for continuous light hydration and to monitor cardiopulmonary status . 04/20 13:51 Order name: Basic Metabolic Panel [facility] 04/20 13:51 Order name: CBC with Diff; Complete Time: 14:47 [facility] 04/20 13:51 Order name: LFT's; Complete Time: 15:19 [facility] 04/20 13:51 Order name: Magnesium; Complete Time: 15:19 [facility] 04/20 13:51 Order name: NT PRO-BNP; Complete Time: 15:19 [facility] 04/20 13:51 Order name: PT-INR; Complete Time: 14:47 8 04/20 13:51 Order name: Troponin (emerg Dept Use Only); Complete Time: 15:19 [facility] 04/20 13:52 Order name: Basic Metabolic Panel; Complete Time: 15:19 EDMS 04/20 14:10 Order name: Digoxin; Complete Time: 15:19 bp 04/20 14:16 Order name: Glucose, Ancillary Testing; Complete Time: 14:47 EDDC 04/20 16:06 Order name: Urine Microscopic Only [facility] 04/20 16:06 Order name: Procalcitonin; Complete Time: 17:44 8 04/20 16:06 Order name: Lactate; Complete Time: 17:16 [facility] 04/20 19:37 Order name: Urine Dipstick--Ancillary (enter results) ds4 04/20 13:51 Order name: XRAY Chest (1 view); Complete Time: 15:19 [facility] 04/20 23:51 Order name: Urinalysis W/Microscopic EDDC 04/21 03:42 Order name: Protime (+INR) EDDC 04/21 03:50 Order name: CBC with Automated Diff EDMS 04/21 04:09 Order name: Basic Metabolic Panel EDMS 04/21 04:09 Order name: T4 Free [facility] 04/21 04:09 Order name: Magnesium [facility] 04/21 04:09 Order name: Thyroid Stimulating Hormone [facility] 04/21 08:05 Order name: Glucose, Ancillary Testing [facility] 04/21 09:42 Order name: Glucose, Ancillary Testing [facility] 04/21 10:38 Order name: CORONAVIRUS [facility] 04/21 12:32 Order name: Glucose, Ancillary Testing [facility] 04/20 13:51 Order name: EKG; Complete Time: 13:52 [facility] 04/20 13:51 Order name: Cardiac monitoring; Complete Time: 14:10 [facility] 04/20 13:51 Order name: EKG - Nurse/Tech; Complete Time: 14:09 [facility] 04/20 13:51 Order name: IV Saline Lock; Complete Time: 14:09 [facility] 04/20 13:51 Order name: Labs collected and sent; Complete Time: 14:09 [facility] 04/20 13:51 Order name: O2 Per Protocol; Complete Time: 14:28 [facility] 04/20 13:51 Order name: O2 Sat Monitoring; Complete Time: 14:28 [facility] 04/20 16:06 Order name: Urine Dipstick-Ancillary (obtain specimen); Complete Time: 19:37 [facility] 04/20 16:56 Order name: Social Service Consult [facility] 04/20 17:59 Order name: Bladder Scanner; Complete Time: 17:59 aa5 Administered Medications: 14:27 Drug: NS 0.9% 1000 ml Route: IV; Rate: 1000 ml; Site: right wrist; aa5 15:30 Follow up: IV Status: Completed infusion; IV Intake: 1000ml aa5 15:39 Drug: NS 0.9% 1000 ml Route: IV; Rate: 75 ml/hr; Site: right wrist; aa5 16:23 Drug: NS 0.9% 500 ml Route: IV; Rate: bolus; Site: right wrist; aa5 16:55 Follow up: IV Status: Completed infusion; IV Intake: 500ml aa5 16:23 Drug: NS 0.9% 500 ml Route: IV; Rate: bolus; Site: right wrist; aa5 17:15 Follow up: IV Status: Completed infusion; IV Intake: 500ml aa5 Disposition: 04/22 10:54 Co-signature as Attending Physician, Fredy Barbosa MD I agree with the assessment and steve plan of care. Disposition: 04/20/20 15:35 Hospitalization ordered by Elvis Berg for Inpatient Admission. Preliminary diagnosis are Dehydration, Hypotension, Near Syncope. - Bed requested for Telemetry/MedSurg (Inpatient). - Status is Inpatient Admission. iw - Condition is Stable. - Problem is new. - Symptoms have improved. Signatures: Dispatcher [employer] Jory Buitrago RN RN dw Anderson, Corey, MD MD cha Williams, Irene RN RAJINDER Charis Greenwood RN RN aa5 Will Ramirez PA PA jr8 Corrections: (The following items were deleted from the chart) 04/20 16:27 13:47 PSHx: heart valve replacement; aa5 16:30 15:35 Hospitalization Ordered by Elvis Berg DO for Observation. Preliminary jr8 diagnosis is Dehydration; Hypotension; Near Syncope. Bed requested for Telemetry/MedSurg (observation). Status is Observation. Condition is Stable. Problem is new. Symptoms have improved. [facility] 19:28 16:30 04/20/2020 15:35 Hospitalization Ordered by Elvis Berg DO for Inpatient dw Admission. Preliminary diagnosis is Dehydration; Hypotension; Near Syncope. Bed requested for Intensive Care Unit. Status is Inpatient Admission. Condition is Stable. Problem is new. Symptoms have improved. [facility] 04/21 11:28 04/20 19:28 04/20/2020 15:35 Hospitalization Ordered by Elvis Berg DO for Inpatient dw Admission. Preliminary diagnosis is Dehydration; Hypotension; Near Syncope. Bed requested for [facility] ER HOLD. Status is Inpatient Admission. Condition is Stable. Problem is new. Symptoms have improved. 04/21 13:18 11:28 04/20/2020 15:35 Hospitalization Ordered by Elvis Berg DO for Inpatient iw Admission. Preliminary diagnosis is Dehydration; Hypotension; Near Syncope. Bed requested for Telemetry/MedSurg (Inpatient). Status is Inpatient Admission. Condition is Stable. Problem is new. Symptoms have improved.
--- NOTE | 2020-04-20 15:36 | ER ---
Nurse's Notes [facility] Name: Candice Hunter Age: 74 yrs Sex: Female : 1945 Arrival Date: 04/20/2020 Time: 13:33 Bed 30 Private MD: Jarocho Patricio Diagnosis: Dehydration;Hypotension;Near Syncope Presentation: 04/20 13:44 Chief complaint: Patient states: woke up this morning and was feeling SOB and had some iw chest pain and felt weak, now is feeling nauseous , has headache and dizzy, was getting some low BP reading at home , had an appt with Dr. Patricio, BP was 94 systolic. Coronavirus screen: Client presents with at least one sign or symptom that may indicate coronavirus-19. Ebola Screen: Patient negative for fever greater than or equal to 101.5 degrees Fahrenheit, and additional compatible Ebola Virus Disease symptoms Patient denies exposure to infectious person. Patient denies travel to an Ebola-affected area in the 21 days before illness onset. No symptoms or risks identified at this time. Initial Sepsis Screen: Does the patient meet any 2 criteria? No. Patient's initial sepsis screen is negative. Does the patient have a suspected source of infection? No. Patient's initial sepsis screen is negative. Risk Assessment: Do you want to hurt yourself or someone else? Patient reports no desire to harm self or others. Onset of symptoms was April 20, 2020. 13:44 Method Of Arrival: Ambulatory iw 13:44 Acuity: LITA 2 iw Historical: - Allergies: 13:47 Sulfa (Sulfonamide Antibiotics); iw 13:47 Iodine; iw - Home Meds: 14:00 digoxin 125 mcg Oral tab 1 tab once daily [Active]; warfarin 3 mg Oral tab 1 tab once aa5 daily [Active]; Toujeo SoloStar 300 unit/mL (1.5 mL) subcutaneous inpn 26 units [Active]; metoprolol succinate 100 mg Oral Tb24 1 tab once daily [Active]; levothyroxine 100 mcg tab 1 tab once daily [Active]; Breo Ellipta 100-25 mcg/dose inhalation dsdv 1 puff once daily [Active]; atorvastatin 40 mg Oral tab 1 tab once daily [Active]; aspirin 81 mg Oral chew 1 tab once daily [Active]; - PMHx: 13:47 Atrial Fib; CHF; COPD; Heart Murmur; Hypertension; iw 14:00 TIA; aa5 - PSHx: 13:47 ovarian cyst, right ovary; Cholecystectomy; ; iw 14:00 Mitral Valve Replacement 2010; aa5 - Immunization history:: Adult Immunizations unknown. - Social history:: Smoking status: Patient denies any tobacco usage or history of. Screenin:00 Abuse screen: Denies threats or abuse. Nutritional screening: No deficits noted. aa5 Tuberculosis screening: No symptoms or risk factors identified. Fall Risk IV access (20 points). Ambulatory Aid- Crutches/Cane/Walker (15 pts). Gait- Weak (10 pts.). Total Pringle Fall Scale indicates High Risk Score (45 or more points). Fall prevention measures have been instituted. Side Rails Up X 2 Placed Close to Nursing Station. Assessment: 13:50 General: Appears comfortable, Behavior is calm, cooperative. Pain: Complains of pain in aa5 head and chest Pain does not radiate. Pain currently is 0 out of 10 on a pain scale. Quality of pain is described as aching, Pain began 1 day ago. Is intermittent. Neuro: Level of Consciousness is awake, alert, obeys commands, Oriented to person, place, time, situation, Reticle Printer are weak bilaterally Moves all extremities. Weakness in bilateral arm(s) leg(s) Speech is normal, Facial symmetry appears normal, Pupils are PERRLA, Reports Generalized weakness and intermittent dizziness and headache.. Cardiovascular: Heart tones S1 S2 present Rhythm is atrial fibrillation with rapid ventricular response. Respiratory: Airway is patent Respiratory effort is even, unlabored, Respiratory pattern is regular, symmetrical, Denies cough, shortness of breath. GI: Abdomen is round non-distended, Bowel sounds present X 4 quads. Abd is soft and non tender X 4 quads. Reports vomiting, Pt states "I don't eat much because I feel like the food gets stuck in my chest and I make myself throw it back up so that it quits hurting". Pt reports "feeling of food getting stuck" has been going on for "20 years". Pt states "my chest should not been hurting though because I did not eat today or yesterday". : Reports burning with urination, since Pt states "it always redd when I pee". EENT: No signs and/or symptoms were reported regarding the EENT system. Derm: Skin is pink, warm \\T\\ dry. Musculoskeletal: Range of motion: intact in all extremities. 14:40 Reassessment: Patient is alert, oriented x 3, equal unlabored respirations, skin aa5 warm/dry/pink. Patient denies pain at this time. 14:40 General: Appears comfortable, Behavior is calm, cooperative. aa5 15:30 Reassessment: Patient is alert, oriented x 3, equal unlabored respirations, skin aa5 warm/dry/pink. Patient denies pain at this time. Pt denies any complaints. Awaiting on PA to discuss POC with patient. . 16:15 Reassessment: Patient is alert, oriented x 3, equal unlabored respirations, skin aa5 warm/dry/pink. Dr. Berg (Hospitalist) at bedside . 17:00 Reassessment: Patient is alert, oriented x 3, equal unlabored respirations, skin aa5 warm/dry/pink. Patient denies pain at this time. 17:59 Reassessment: Patient is alert, oriented x 3, equal unlabored respirations, skin aa5 warm/dry/pink. Pt notified of wait time for room assignment, pt verbalizes understanding. Reminded pt of need for urine specimen collection, pt stated that she normally takes a long time to void. was notified and bladder scan was completed. . Vital Signs: 13:44 BP 85 / 58; Pulse 54; Resp 16; Temp 97.0; Pulse Ox 100% on R/A; Pain 4/10; iw 14:02 BP 100 / 75; Pulse 100; aa5 14:26 BP 88 / 68; Pulse 90; Resp 16 S; Pulse Ox 100% on R/A; aa5 14:40 BP 103 / 79; Pulse 99; Resp 16 S; Pulse Ox 97% on R/A; aa5 15:10 BP 99 / 60; Pulse 86; Resp 16 S; Pulse Ox 99% on R/A; aa5 15:38 BP 88 / 66; Pulse 91; Resp 15 S; Pulse Ox 100% on R/A; aa5 15:50 BP 95 / 73; Pulse 90; Resp 16 S; Pulse Ox 100% on R/A; aa5 16:00 BP 96 / 71; Pulse 70; Resp 16 S; Temp 97.5(TE); Pulse Ox 100% on R/A; aa5 16:10 BP 80 / 68; Pulse 103; Resp 18 S; Pulse Ox 100% on R/A; aa5 16:30 BP 109 / 69; Pulse 60; Resp 16 S; Pulse Ox 100% on R/A; aa5 16:45 BP 126 / 41; Pulse 103; Resp 16 S; Pulse Ox 100% on R/A; aa5 17:00 BP 103 / 83; Pulse 99; aa5 17:15 BP 102 / 66; Pulse 98; Resp 16 S; Pulse Ox 100% on R/A; aa5 17:23 BP 92 / 67; Pulse 83; Resp 16 S; Pulse Ox 100% on R/A; aa5 17:45 BP 109 / 53; Pulse 80; Resp 16 S; Temp 97.5(TE); Pulse Ox 100% on R/A; aa5 17:59 aa5 18:00 BP 102 / 76; Pulse 80; Resp 18 S; Pulse Ox 100% on R/A; aa5 15:38 PA was notiifed of continued hypotension and notified of NS bolus completion. aa5 17:59 Bladder scan: TV 115mls. Dr. Berg was notified. aa5 ED Course: 13:33 Patient arrived in ED. as 13:33 Jarocho Patricio DO is Private Physician. as 13:46 Triage completed. iw 13:50 Arm band placed on. aa5 13:50 Patient has correct armband on for positive identification. Placed in gown. Bed in low aa5 position. Call light in reach. Side rails up X2. court monitor on. Pulse ox on. NIBP on. 13:51 Will Ramirez PA is PHCP. jr8 13:51 Fredy Barbosa MD is Attending Physician. jr8 13:56 EKG done, by ED staff, reviewed by Fredy Barbosa MD. aa5 14:00 Initial lab(s) drawn, by il, sent to lab. Inserted saline lock: 22 gauge in right aa5 wrist, using aseptic technique. Blood collected. 14:10 Charis Greenwood, RN is Primary Nurse. aa5 14:40 XRAY Chest (1 view) In Process Unspecified. EDMS 15:34 Elvis Berg DO is Hospitalizing Provider. jr8 Administered Medications: 14:27 Drug: NS 0.9% 1000 ml Route: IV; Rate: 1000 ml; Site: right wrist; aa5 15:30 Follow up: IV Status: Completed infusion; IV Intake: 1000ml aa5 15:39 Drug: NS 0.9% 1000 ml Route: IV; Rate: 75 ml/hr; Site: right wrist; aa5 16:23 Drug: NS 0.9% 500 ml Route: IV; Rate: bolus; Site: right wrist; aa5 16:55 Follow up: IV Status: Completed infusion; IV Intake: 500ml aa5 16:23 Drug: NS 0.9% 500 ml Route: IV; Rate: bolus; Site: right wrist; aa5 17:15 Follow up: IV Status: Completed infusion; IV Intake: 500ml aa5 Intake: 15:30 IV: 1000ml; Total: 1000ml. aa5 16:55 IV: 500ml; Total: 1500ml. aa5 17:15 IV: 500ml; Total: 2000ml. aa5 Outcome: 15:35 Decision to Hospitalize by Provider. jr8 19:00 Admitted to ER Hold. Please see [facility] for further documentation. aa5 19:00 Condition: stable. Report given to RAJINDER Suresh 04/21 13:18 Patient left the ED. iw Signatures: Dispatcher [employer] EDMS Chelsea Estrella Irene RN RN iw Charis Greenwood RN RN aa5 Will Ramirez PA PA jr8 Betito Ennis RN RN bp Corrections: (The following items were deleted from the chart) 04/20 14:08 13:47 General: Appears in no apparent distress. comfortable, Behavior is cooperative, bp appropriate for age, anxious, bp 14:08 13:47 Pain: Denies pain. bp bp 14:08 13:47 EENT: No deficits noted. bp bp 14:08 13:47 Neuro: Reports dizziness, bp bp 14:08 13:47 Cardiovascular: Rhythm is sinus bradycardia bp bp 14:08 13:47 Respiratory: No deficits noted. bp bp 14:08 13:47 GI: Reports nausea, bp bp 14:08 13:47 : No signs and/or symptoms were reported regarding the genitourinary system. bp bp 14:08 13:47 Derm: No deficits noted. bp bp 14:08 13:47 Musculoskeletal: No deficits noted. bp bp 14:10 14:06 Betito Ennis, RN is Primary Nurse. bp aa5 14:10 14:10 Primary Nurse role handed off by Betito Ennis, RN aa5 aa5 14:30 14:00 Arm band placed on bp aa5 14:31 14:26 BP 88 / 68; Pulse 90bpm; aa5 aa5 15:39 15:38 BP 88 / 66; Pulse 91bpm; Resp 15bpm; Spontaneous; Pulse Ox 100% RA; aa5 aa5 16:27 13:47 PSHx: heart valve replacement; iw aa5
--- NOTE | 2020-04-20 16:54 | P.HP ---
Certification for Inpatient Patient admitted to: Inpatient With expected LOS: >2 Midnights Patient will require the following post-hospital care: Home Health Services Practitioner: I am a practitioner with admitting privileges, knowledge of patient current condition, hospital course, and medical plan of care. Services: Services provided to patient in accordance with Admission requirements found in Title 42 Section 412.3 of the Code of Federal Regulations Patient History Date of Service: 04/20/20 Primary Care Provider: Dr. Patricio; Cardiology-Dr. Wolf Reason for admission: Dizziness History of Present Illness: 74-year-old female with history of TIA, atrial fibrillation on Coumadin, hypertension, history of mitral valve replacement, diabetes. Patient reports that she is had decreased appetite for several days. She was noticing increasing dizziness and fatigue. She felt constipated on Monday then on Monday she had a report of diarrhea it was watery. She had an episode of abdominal pain but that has resolved. Some nausea and vomiting noted. No fever, chills at this time. Went to see her PCP which noted her blood pressure being low. She was sent to the ER for further evaluation. In the ER initial blood pressure 85/58 with a heart rate of 54. Sodium 142, potassium 4.6. BUN of 23, creatinine 1.21 with a GFR 44. Glucose 161. White count 10.1, hemoglobin 14. Troponin unremarkable. BNP 4800. Chest x-ray unremarkable. Digoxin level unremarkable. Pro calcitonin and lactic acid within normal range. Patient given IV fluid bolus in the emergency room. Patient admitted for further evaluation and treatment. When I saw the patient ER, patient did not appear septic. Blood pressure is still low. Patient given another bolus of normal saline. Patient reports having seen Cardiology about 2 weeks ago. Her medication metoprolol was increased at that time to 100 mg 1 pill twice daily. Allergies iodine [Iodine] Allergy (Mild, Verified 08/23/11 17:33) Hives sulfur dioxide Allergy (Verified 03/11/19 16:47) Hives Home medications list reviewed: Yes Home Medications: Aspirin 81 mg PO DAILY 03/11/19 Atorvastatin Calcium [Lipitor] 40 mg PO DAILY 03/11/19 Digoxin [Lanoxin*] 0.125 mg PO DAILY 03/11/19 Fluticasone/Vilanterol [Breo Ellipta 100-25 Mcg INH] 1 spray IH DAILY 03/11/19 Insulin Glargine,Hum.rec.anlog [Evans Tineo] 26 units SQ DAILY 03/11/19 Levothyroxine [Synthroid*] 100 mcg PO DAILY 03/11/19 Metoprolol Succinate [Toprol Xl] 100 mg PO DAILY 03/11/19 Warfarin Sodium [Coumadin*] 3 mg PO DAILY 03/11/19 lisinopriL [Prinivil*] 5 mg PO DAILY 03/11/19 - Past Medical/Surgical History Diabetic: Yes -: Hypertension -: COPD -: Atrial fibrillation on chronic anti coagulation therapy -: Mitral valve replacement on chronic anti coagulation therapy -: Hyperlipidemia -: Hypothyroidism -: Diabetes mellitus type 2, insulin-dependent -: History of pacemaker -: Cataracts to bilateral eyes -: Mitral valve replacement -: Pacemaker -: Right cyst removed from ovary -: -: Cholecystectomy Psychosocial/ Personal History: Patient is . She lives alone in an apartment. - Family History Father -: Diabetes Notes: Blood Cancer Mother Notes: alzheimer's Sister -: Diabetes - Social History Smoking Status: Never smoker Alcohol use: No CD- Drugs: No Caffeine use: Yes Place of Residence: Home Review of Systems General: Weakness, As per HPI Eyes: Unremarkable ENT: Unremarkable Respiratory: Unremarkable Cardiovascular: Light Headedness, As per HPI Gastrointestinal: Nausea, Vomiting, Abdominal Pain, Diarrhea, As per HPI Genitourinary: Unremarkable Musculoskeletal: Unremarkable Integumentary: Unremarkable Neurological: As per HPI Lymphatics: Unremarkable Physical Examination - Physical Exam General: Alert, In no apparent distress, Oriented x3, Cooperative HEENT: Atraumatic, Normocephalic, PERRLA, Other (Dry mucous membranes) Neck: Supple, No Thyromegaly Respiratory: Clear to auscultation bilaterally, Normal air movement Cardiovascular: Irregular heart rate/rhythm (AFib rate controlled) Gastrointestinal: Normal bowel sounds, No tenderness, No masses, No rebound, No guarding Musculoskeletal: No erythema, No tenderness, No warmth Integumentary: No tenderness/swelling, No erythema, No warmth, No cyanosis, Other (Dry skin noted throughout.) Neurological: Normal speech, Normal strength at 5/5 x4 extr, Normal tone, Normal affect - Studies Laboratory Data (last 24 hrs) 04/20/20 14:00: PT 16.3 H, INR 1.39 04/20/20 14:00: WBC 10.1, Hgb 14.4, Hct 41.7, Plt Count 289 04/20/20 14:00: Sodium 142, Potassium 4.6, BUN 23 H, Creatinine 1.21, Glucose 161 H, Magnesium 2.1, Total Bilirubin 1.0, AST 23, ALT 29, Alkaline Phosphatase 87 Assessment and Plan - Plan Impression: Dizziness secondary to hypotension related to acute renal injury and medication-metoprolol Atrial fibrillation on chronic anti coagulation therapy-Coumadin Diabetes mellitus type 2 insulin-dependent History of mitral valve replacement-mechanical Hypothyroidism Hyperlipidemia Plan: Dizziness secondary to hypotension related to acute renal injury and medication- metoprolol: Patient will be admitted for further evaluation and treatment. Blood pressure initially low. Patient given 1 L of fluid. Will give another Liter now. Maintain map of 65. Blood pressure likely related to acute renal injury and increase dose of metoprolol. Hold metoprolol at this time. Once blood pressure is better controlled will consider decreasing metoprolol. Continue IV fluids. Patient does not appear septic at this time but will order pro calcitonin and lactic acid. Anticipate improvement. Patient will go to the ICU initially due to hypotension. If improved will transition to the floor. Cardiology consulted. Advance care planning address in detail. Patient is full code. Patient will likely require home health at discharge. Will discuss further with cardiology about adjustment in medication. Will need to monitor for diarrhea. Possible discharge in the next 48 hr. Advance care planning-30 min Atrial fibrillation on chronic anti coagulation therapy-Coumadin: Will monitor INR. Continue Coumadin. Will need to adjust metoprolol medication. Hold digoxin at this time. Obtain and verify home medication. Will discuss plan of care with Cardiology. Diabetes mellitus type 2 insulin-dependent: Continue Accu-Cheks. Sliding scale in place. History of mitral valve replacement-mechanical: Continue Coumadin Hypothyroidism: Restart home medication Hyperlipidemia: Restart home medication Discharge Plan: Home Plan to discharge in: 72 Hours - Advance Directives Does patient have a Living Will: Yes Does patient have a Durable POA for Healthcare: No - Code Status/Comfort Care Code Status Assessed: Yes (Patient is full code. Advanced care planning-30 min) Time Spent Managing Pts Care (In Minutes): 55
[2020-04-20] MEDS: NACHLORIDE 0.45% 1,000 ML IV SCH (19:46)
[2020-04-20] MEDS ORDERED: ACETAMINOPHEN 500 MG TAB PO PRN (19:46)
[2020-04-20] MEDS: WARFARIN SODIUM 3 MG TAB PO SCH (19:46)
[2020-04-20] MEDS ORDERED: ONDANSETRON 4 MG/2 ML VIAL IV PRN (19:46)
[2020-04-20] MEDS ORDERED: ATORVASTATIN 20 MG TAB ONE (20:08)
[2020-04-20] MEDS ORDERED: WARFARIN SODIUM 5 MG TAB ONE (20:08)
[2020-04-20] MEDS ORDERED: NACHLORIDE 0.45% 1,000 ML IV ONE (20:08)
[2020-04-20] MEDS: ATORVASTATIN 10 MG TAB PO SCH (21:00)
[2020-04-20] MEDS: INSULIN -REGULAR HUMAN 50 UNIT/0.5 ML ML SQ SCH (21:00)
[2020-04-20 23:23] LABS: Urine Appearance CLOUDY; Urine Bilirubin NEGATIVE (NEG); Urine Blood TRACE (NEG); Urine Color YELLOW; Urine Glucose NEGATIVE (NEG); Urine Protein 1+ (NEG); Urine Urobilinogen 0.2 mg/dL (0.2-1.0)
[2020-04-20 23:51] LABS: Urine Bacteria LOADED /HPF (<20)
[2020-04-21 00:47] VITALS: BMI 27.3
[2020-04-21 03:41] LABS: Protime INR 1.78
[2020-04-21 03:47] LABS: Absolute Lymphocytes (CBC) 1.4 K/uL (0.7-4.9); Basophils % 0.9 % (0-1.3); Hematocrit 32.6 % (36.0-45.0); Lymphocytes % 25.7 % (15.3-44.8); MPV 9.4 fL (7.6-11.3); RBC Red Blood Cell Count 3.52 M/uL (3.86-4.86)
[2020-04-21 04:05] LABS: Magnesium 1.8 mg/dL (1.8-2.4); Potassium 4.4 mmol/L (3.5-5.1)
[2020-04-21 04:09] LABS: Thyroid Stimulating Hormone 4.9 uIU/mL (0.360-3.740)
[2020-04-21] MEDS: INSULIN -REGULAR HUMAN 50 UNIT/0.5 ML ML SQ SCH ×4 (07:30→21:00)
[2020-04-21] MEDS ORDERED: MAGNESIUM SULFATE 1 gm IVPB 1 GM/100 ML BAG IV ONE (09:00)
[2020-04-21] MEDS: NACHLORIDE 0.45% 1,000 ML IV SCH ×2 (09:23→22:21)
[2020-04-21] MEDS ORDERED: NACHLORIDE 0.45% 1,000 ML IV ONE (09:31)
--- NOTE | 2020-04-21 09:43 | P.PN ---
Subjective Date of Service: 04/21/20 Primary Care Provider: Dr. Patricio; Cardiology-Dr. Wolf Chief Complaint: Dizziness Subjective: Other (Patient appears better hydrated. Blood pressure is still on the low side but stable.) Physical Examination - Vital Signs Temperature: 97 F Blood Pressure: 96/59 Pulse: 103 Respirations: 15 Pulse Ox (%): 98 - Physical Exam General: Alert, In no apparent distress, Oriented x3, Cooperative HEENT: Atraumatic Neck: Supple Respiratory: Clear to auscultation bilaterally, Normal air movement Cardiovascular: Irregular heart rate/rhythm (AFib rate controlled) Gastrointestinal: No tenderness, No masses, No rebound, No guarding Musculoskeletal: No erythema, No tenderness, No warmth Integumentary: No tenderness/swelling, No erythema, No warmth, No cyanosis, Other (Patient appears better hydrated) Neurological: Normal speech, Normal strength at 5/5 x4 extr, Normal tone, Normal affect - Studies Laboratory Data (last 24 hrs) 04/20/20 14:00: PT 16.3 H, INR 1.39 04/20/20 14:00: WBC 10.1, Hgb 14.4, Hct 41.7, Plt Count 289 04/20/20 14:00: Sodium 142, Potassium 4.6, BUN 23 H, Creatinine 1.21, Glucose 161 H, Magnesium 2.1, Total Bilirubin 1.0, AST 23, ALT 29, Alkaline Phosphatase 87 Medications List Reviewed: Yes Assessment & Plan Discharge Plan: Home Plan to discharge in: 24 Hours Physician Review Additional Text: Impression: Dizziness secondary to hypotension related to acute renal injury and medication- metoprolol Atrial fibrillation on chronic anti coagulation therapy-Coumadin Diabetes mellitus type 2 insulin-dependent with hypoglycemia History of mitral valve replacement-mechanical Hypothyroidism Hyperlipidemia Plan: Dizziness secondary to hypotension related to acute renal injury and medication- metoprolol: Continue IV fluids. Continue to hold metoprolol. Metoprolol may need to be further adjusted. Metoprolol cannot be restarted due to low blood pressure. Digoxin currently on hold. Will discuss with cardiology. Will check orthostatics this morning. Will have physical therapy assess ambulation. Patient may need 1 more day of IV fluids as renal function also has improved. Continue monitor electrolytes. Electrolyte protocol in place. Patient would benefit with home health and physical therapy at discharge. Will help arrange. Will discuss with case management. Likely discharge tomorrow Atrial fibrillation on chronic anti coagulation therapy-Coumadin: Will monitor INR. Continue Coumadin. Will need to verify home medication. Continue to hold metoprolol. Will need to discuss with Cardiology about plan of care related to above Diabetes mellitus type 2 insulin-dependent with hypoglycemia: Continue Accu- Cheks. Sliding scale in place. Encourage oral intake. Will need to verify home medication. Continue to hold basal insulin. History of mitral valve replacement-mechanical: Continue Coumadin. INR sub therapeutic. Will need to verify home medication. Hypothyroidism: Will need to obtain and verify home medication. Hyperlipidemia: Obtain and verify home medication. Time Spent Managing Pts Care (In Minutes): 55
[2020-04-21] MEDS: METOPROLOL TAR 25 MG TAB PO SCH (17:35)
[2020-04-21] MEDS: WARFARIN SODIUM 3 MG TAB PO SCH (17:35)
--- NOTE | 2020-04-21 18:15 | EKG ---
Test Date: 2020-04-20 Test Time: 13:56:47 Incident Response Lead: LEO MEASUREMENT RESULTS: Intervals: Rate: 111 NM: QRSD: 86 QT: 334 QTc: 454 Pickrell: P: NM: QRS: 39 T: 117 INTERPRETIVE STATEMENTS: Atrial fibrillation with rapid ventricular response Nonspecific T wave abnormality, probably digitalis effect Abnormal ECG Compared to ECG 03/11/2019 12:51:00 Ventricular premature complex(es) no longer present T-wave abnormality still present Electronically Signed On 04-21-20 18:11:35 ASSISTANT by Jase Wolf
[2020-04-21] MEDS: ATORVASTATIN 10 MG TAB PO SCH (22:20)
[2020-04-21] MEDS: GLUCERNA SHAKE 237 ML CAN PO SCH (22:21)
--- NOTE | 2020-04-22 04:17 | CON ---
Date of Consultation: 04/21/2020 Reason For Consultation: Presyncope and orthostatic hypotension. History Of Present Illness: Ms. Hunter is a 74-year-old woman who has a history of atrial fibrillat ion, congestive heart failure, COPD, and hypertension as well as a mitral valve replacement in 2010. Came in with dehydration and not eating well, dizzy, hypotensive on arrival. Denied chest pain. Thanh h[place] had some nausea but no vomiting. Has had some diarrhea. Denied any fever or chills. Denied any P ND, orthopnea, pedal edema, or palpitation. When she came into the hospital, blood pressure was 85/5 8. Past Medical History: As stated above. Allergies: IODINE AND SULFA. Review of Systems: Negative. Social History: Negative. Family History: Noncontributory. Medications: At home include digoxin, metoprolol 100 mg daily, Synthroid, Breo Ellipta, Lipitor 40 m g daily. Physical Examination: Vital Signs: Initially, her blood pressure was 85/58. When I saw the patient, her pressure was 160/ 85. She was in atrial fibrillation with a rate of 108. HEENT: Negative. Neck: Supple without any bruit. Chest: Clear to auscultation and percussion. Cardiac: Revealed an irregularly irregular rhythm and rate without any murmurs, gallops, or rubs. Abdomen: Benign. Extremities: Reveal no clubbing, cyanosis, or edema. Diagnostic Data: Hemoglobin was 11.3. Her creatinine is 0.81. Her PT was 20.8 with an INR of 1.78. Her glucose was 150. Her BNP was elevated at 4826. Her troponin was negative. TSH was 4.9. Impression And Plan: Hypotension, secondary to dehydration. Patient has not been eating well and thanh s had diarrhea. I think we should hydrate her. We should decrease her metoprolol dose. When she go es home, she is on 12.5 now instead of 100. She does not need any further cardiac workup at this poi nt. We will make sure she will follow up in our office in the near future as far as her mitral valve is concerned. Her other problems include allergy to iodine and sulfa, chronic atrial fibrillation, and mitral valve replacement for which she takes Coumadin. Dyslipidemia, for which she takes Lipitor . She has chronic obstructive pulmonary disease, for which she takes Breo Ellipta. She has hypothyr oidism, on Synthroid. She has hypertension, has had a history of transient ischemic attack, that is stable. Has had a history of chronic diastolic congestive heart failure in the past but that is defi nitely stable at this point. We will continue to follow her along. IBIS/ANGELICA Voice ID: [id number] Report ID: [id number]
[2020-04-22 05:11] LABS: Magnesium 1.9 mg/dL (1.8-2.4); Potassium 4.3 mmol/L (3.5-5.1)
[2020-04-22] MEDS ORDERED: LEVOTHYROXINE SOD 0.1 MG TAB PO SCH (06:00)
[2020-04-22] MEDS: METOPROLOL TAR 25 MG TAB PO SCH ×2 (06:40→16:09)
[2020-04-22] MEDS: INSULIN -REGULAR HUMAN 50 UNIT/0.5 ML ML SQ SCH ×3 (07:30→16:08)
--- NOTE | 2020-04-22 08:29 | PN ---
Date of Progress Note: 04/22/2020 Patient was admitted yesterday with hypertension beta-allen. She does have a history of mitral valve replacement. She has a low INR. I suggested restarting Coumadin dose. Her blood pres sure is adequate. I would keep her off metoprolol. We can see her in the office in the next 2 weeks . Continue hydration. She can go home whenever it is okay with Dr. Berg. IBIS/ANGELICA Voice ID: [id number] Report ID: [id number]
[2020-04-22] MEDS ORDERED: DIGOXIN 0.125 MG TABLET PO SCH (09:00)
[2020-04-22 09:10] VITALS: BP 106/78; TEMP 97.3
[2020-04-22] MEDS: GLUCERNA SHAKE 237 ML CAN PO SCH (09:32)
[2020-04-22 09:42] VITALS: O2SAT 98
[2020-04-22] MEDS ORDERED: NA CHLORIDE 0.9% 500 ML IV ONE (10:35)
[2020-04-22] MEDS ORDERED: NA CHLORIDE 0.9% 500 ML ONE (10:52)
[2020-04-22] MEDS ORDERED: CEFTRIAXONE 1 GM/NS 50 ML 1 GM/50 ML BAG IV SCH (12:27)
[2020-04-22] MEDS ORDERED: CEFTRIAXONE/SWI 1gm 1 GM/10 ML SYR IV SCH (13:00)
--- NOTE | 2020-04-22 13:04 | P.PN ---
Subjective Date of Service: 04/22/20 Primary Care Provider: Dr. Patricio; Cardiology-Dr. Wolf Chief Complaint: Dizziness Subjective: Improving, Doing well Physical Examination - Vital Signs Temperature: 97.3 F Blood Pressure: 106/78 Pulse: 116 Respirations: 18 Pulse Ox (%): 96 - Physical Exam General: Alert, In no apparent distress, Cooperative HEENT: Atraumatic Neck: Supple Respiratory: Clear to auscultation bilaterally, Normal air movement Cardiovascular: Irregular heart rate/rhythm Gastrointestinal: No tenderness, No masses, No rebound, No guarding Integumentary: No erythema, No warmth, No cyanosis Neurological: Normal speech, Normal strength at 5/5 x4 extr, Normal tone, Normal affect - Studies Medications List Reviewed: Yes Assessment & Plan Discharge Plan: Home Plan to discharge in: 24 Hours Physician Review Additional Text: Impression: Dizziness secondary to hypotension related to acute renal injury and medication- metoprolol Atrial fibrillation on chronic anti coagulation therapy-Coumadin Diabetes mellitus type 2 insulin-dependent with hypoglycemia History of mitral valve replacement-mechanical Hypothyroidism Hyperlipidemia UTI Plan: Dizziness secondary to hypotension related to acute renal injury and medication- metoprolol: Orthostatics this am was positive. IV fluid bolus given. Will continue with IV fluids. Will reassess later and consider DC home later. Patient with UTI. Rocephins started. Consider DC home later after reassessment. Atrial fibrillation on chronic anti coagulation therapy-Coumadin: Will monitor INR. Continue Coumadin. Will need to verify home medication. Restart metoprolol at a low dose. Diabetes mellitus type 2 insulin-dependent with hypoglycemia: Continue Accu- Cheks. Sliding scale in place. Encourage oral intake. Will need to verify home medication. Continue to hold basal insulin. History of mitral valve replacement-mechanical: Continue Coumadin. INR sub therapeutic. Will need to verify home medication. Hypothyroidism: Will need to obtain and verify home medication. Hyperlipidemia: Obtain and verify home medication. UTI: Rocephin started. Culture obtained. Time Spent Managing Pts Care (In Minutes): 55
--- NOTE | 2020-04-22 15:32 | P.DS ---
Admission Date: 04/20/20 Discharge Date: 04/22/20 Primary Care Provider: Dr. Patricio; Cardiology-Dr. Wolf Disposition: ROUTINE DISCHARGE Discharge Condition: GOOD Reason for Admission: Dizziness Consultations: Cardiology-Dr. 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 Patient reports that she is had decreased appetite for several days. She was noticing increasing dizziness and fatigue. She felt constipated on Monday en on Monday she had a report of diarrhea it was watery. She had an episode of abdominal pain but that has resolved. Some nausea and vomiting noted. No fever, chills at this time. Went to see her PCP which noted her blood pressure being low. She was sent to the ER for further evaluation. In the ER initial blood pressure 85/58 with a heart rate of 54. Sodium 142, potassium 4.6. BUN of 23, creatinine 1.21 with a GFR 44. Glucose 161. White count 10.1, hemoglobin 14. Troponin unremarkable. BNP 4800. Chest x-ray unremarkable. Digoxin level unremarkable. Pro calcitonin and lactic acid wit hin normal range. Patient given IV fluid bolus in the emergency room. Patient admitted for further evaluation and treatment. When I saw the patient ER, patient did not appear septic. Blood pressure is still low. Patient given another bolus of normal saline. Patient reports having seen Cardiology about 2 weeks ago. Her medication metoprolol was increased at that time to 100 mg 1 pill twice daily. Hospital Course: Patient presented with dyspnea secondary to orthostatic hypotension and acute renal injury/dehydration. Hypotension was likely related to increase dose of metoprolol. The patient was admitted further evaluation and IV fluids. Metoprolol and lisinopril for held. Patient had previously been taking 100 mg twice daily. She also takes is for her atrial fibrillation. Cardiology was consulted for recommendation. Cardiology agreed with decrease of metoprolol to 12.5 mg 1 pill twice daily. She may need to hold medication if blood pressure is less than 110. The patient received IV fluids with improvement. Patient mentions poor oral intake. Patient encouraged to increase oral intake at home. At discharge the patient will continue with metoprolol 12.5 mg 1 pill twice daily. At discharge she will no longer take lisinopril 5 mg daily. She is to monitor blood pressures daily. If her blood pressure is less than 110. She is to hold her metoprolol. Patient may continue with her digoxin for her atrial fibrillation. Patient with atrial fibrillation on chronic anti coagulation therapy and hypertension. As mentioned above medications have been adjusted. Patient will no longer take lisinopril. Metoprolol will be decreased to 12.5 mg 1 pill twice daily. Recommend to monitor blood pressure daily. She may need to hold medication if blood pressure systolic less than 110 or heart rate less than 50. Patient may continue with digoxin 0.125 mg daily. Patient will continue with Coumadin 3 mg daily as well. Recommend to recheck INR in 1 week. Patient also takes aspirin 81 mg daily. She may continue with his medication. Recommend follow up with cardiology in 1-2 weeks to monitor her progress. Patient also found to have UTI. Urine culture pending at discharge. At discharge she will continue with Ceftin 250 mg 1 pill twice daily for 7 days. UTI prevention will be provided. Patient with diabetes mellitus type 2 insulin-dependent. Patient has been using insulin Toujeo at home along with Victoza. Patient was hypoglycemic when she arrived. This improved with increased nutrition. Patient required Glucerna supplementation. Patient reports she only eats 1 meal a day. A1c 5.8. Will recommend to discontinue insulin Toujeo. Recommend to monitor blood sugar at least twice daily. Recommend to maintain blood sugar less than 140 fasting and less than 200 after meals. Patient may need to supplement her nutrition with Glucerna 3 times a day. If her blood sugar is greater than 200 then may need to restart medication of Victoza. Will recommend that she follow up with her PCP within 1 week to determine any further changes to her regimen. Education on hypoglycemia will be provided. Patient with mechanical mitral valve replacement. Patient on Coumadin. Patient will continue with Coumadin 3 mg daily. Recommend to recheck INR in 1 week. Further adjustment can be done by her PCP or cardiology. Patient with hyperlipidemia. At discharge she will continue with Lipitor 40 mg daily. Patient with hypothyroidism. At discharge she will continue with levothyroxine 100 mcg daily. Vital Signs/Physical Exam: Temp Pulse Resp BP Pulse Ox 97.3 F 116 H 18 106/78 96 04/22/20 13:04 04/22/20 13:04 04/22/20 13:04 04/22/20 13:04 04/22/20 13:04 General: Alert, In no apparent distress, Oriented x3, Cooperative HEENT: Atraumatic Neck: Supple Respiratory: Clear to auscultation bilaterally, Normal air movement Cardiovascular: Irregular heart rate/rhythm (AFib rate controlled) Gastrointestinal: Normal bowel sounds, Soft and benign, Non-distended, No tenderness, No masses, No rebound, No guarding Musculoskeletal: No erythema, No tenderness, No warmth Integumentary: No tenderness/swelling, No erythema, No warmth, No cyanosis Neurological: Normal speech, Normal strength at 5/5 x4 extr, Normal tone, Other (Patient better hydrated) Laboratory Data at Discharge: WBC 5.4 K/uL (4.3-10.9) D 04/21/20 03:20 Hgb 11.3 g/dL (12.0-15.0) L D 04/21/20 03:20 Hct 32.6 % (36.0-45.0) L D 04/21/20 03:20 Plt Count 161 K/uL (152-406) D 04/21/20 03:20 PT 20.8 SECONDS (9.5-12.5) H 04/21/20 03:20 INR 1.78 04/21/20 03:20 Sodium 142 mmol/L (136-145) 04/22/20 04:10 Potassium 4.3 mmol/L (3.5-5.1) 04/22/20 04:10 BUN 18 mg/dL (7-18) 04/22/20 04:10 Creatinine 0.81 mg/dL (0.55-1.3) 04/22/20 04:10 Glucose 109 mg/dL (74-106) H 04/22/20 04:10 Magnesium 1.9 mg/dL (1.8-2.4) 04/22/20 04:10 Total Bilirubin 1.0 mg/dL (0.2-1.0) 04/20/20 14:00 AST 23 U/L (15-37) 04/20/20 14:00 ALT 29 U/L (12-78) 04/20/20 14:00 Alkaline Phosphatase 87 U/L (45-117) 04/20/20 14:00 Home Medications: Albuterol Sulfate [Proair Respiclick] 90 mcg IH DAILY PRN 04/21/20 Aspirin [Aspirin EC 81 MG] 81 mg PO DAILY 04/21/20 Atorvastatin Calcium [Lipitor] 40 mg PO DAILY 04/21/20 Digoxin [Lanoxin*] 0.125 mg PO DAILY 04/21/20 Levothyroxine [Synthroid*] 100 mcg PO [id number] 04/21/20 Liraglutide [Victoza 2-Jared] 1.8 mg SQ BEDTIME 04/21/20 Warfarin Sodium [Coumadin*] 3 mg PO DAILY 04/21/20 Cefuroxime [Ceftin] 250 mg PO BID #14 tab 04/22/20 Glucerna Shake [Glucerna*] 237 ml PO TID #90 can 04/22/20 Metoprolol Tartrate [Lopressor*] 12.5 mg PO BID 6AM 6PM #30 tab 04/22/20 New Medications: Cefuroxime [Ceftin] 250 mg PO BID #14 tab Glucerna Shake [Glucerna*] 237 ml PO TID #90 can Metoprolol Tartrate [Lopressor*] 12.5 mg PO BID 6AM 6PM #30 tab Patient Discharge Instructions: 1. Follow up with PCP in 1 week. 2. Patient presented with dyspnea secondary to orthostatic hypotension and acute renal injury/dehydration. Hypotension was likely related to increase dose of metoprolol. The patient was admitted further evaluation and IV fluids. Metoprolol and lisinopril for held. Patient had previously been taking 100 mg twice daily. She also takes is for her atrial fibrillation. Cardiology was consulted for recommendation. Cardiology agreed with decrease of metoprolol to 12.5 mg 1 pill twice daily. She may need to hold medication if blood pressure is less than 110. The patient received IV fluids with improvement. Patient mentions poor oral intake. Patient encouraged to increase oral intake at home. At discharge the patient will continue with metoprolol 12.5 mg 1 pill twice daily. At discharge she will no longer take lisinopril 5 mg daily. She is to monitor blood pressures daily. If her blood pressure is less than 110. She is to hold her metoprolol. Patient may continue with her digoxin for her atrial fibrillation. 3. Patient with atrial fibrillation on chronic anti coagulation therapy and hypertension. As mentioned above medications have been adjusted. Patient will no longer take lisinopril. Metoprolol will be decreased to 12.5 mg 1 pill twice daily. Recommend to monitor blood pressure daily. She may need to hold medication if blood pressure systolic less than 110 or heart rate less than 50. Patient may continue with digoxin 0.125 mg daily. Patient will continue with Coumadin 3 mg daily as well. Recommend to recheck INR in 1 week. Patient also takes aspirin 81 mg daily. She may continue with his medication. Recommend follow up with cardiology in 1-2 weeks to monitor her progress. 4. Patient also found to have UTI. Urine culture pending at discharge. At disch arge she will continue with Ceftin 250 mg 1 pill twice daily for 7 days. UTI prevention will be provided. 5. Patient with diabetes mellitus type 2 insulin- dependent. Patient has been using insulin Toujeo at home along with Victoza. Patient was hypoglycemic when she arrived. This improved with increased nutrition. Patient required Glucerna supplementation. Patient reports she only eats 1 meal a day. A1c 5.8. Will recommend to discontinue insulin Toujeo. Recommend to monitor blood sugar at least twice daily. Recommend to maintain blood sugar less than 140 fasting and less than 200 after meals. Patient may need to supplement her nutrition with Glucerna 3 times a day. If her blood sugar is greater than 200 then may need to restart medication of Victoza. Will recommend that she follow up with her PCP within 1 week to determine any further changes to her regimen. Education on hypoglycemia will be provided. 6. Patient with mechanical mitral valve replacement. Patient on Coumadin. Patient will continue with Coumadin 3 mg daily. Recommend to recheck INR in 1 week. Further adjustment can be done by her PCP or cardiology. 7. Patient with hyperlipidemia. At discharge she will continue with Lipitor 40 mg daily. 8. Patient with hypothyroidism. At discharge she will continue with levothyroxine 100 mcg daily. Diet: ADA Activity: Fall precautions Followup: Jarocho Patricio DO [Primary Care Provider] - Time spent managing pt's care (in minutes): 55
[2020-04-22] MEDS: WARFARIN SODIUM 3 MG TAB PO SCH (16:09)
== END 2020-04-22 16:27 | disposition home health service (06) | DRG 683 ==
LOC: ER 13:31 → ERHOLD 16:39 → 2ND 04-21 12:01
PROVIDERS: ADMIT Family Medicine; ATTEND Family Medicine
DX: N17.9 Acute kidney failure, unspecified (principal); N39.0 Urinary tract infection, site not specified; I48.20 Chronic atrial fibrillation, unspecified; I50.32 Chronic diastolic (congestive) heart failure; I11.0 Hypertensive heart disease with heart failure; E86.0 Dehydration; J44.9 Chronic obstructive pulmonary disease, unspecified; E03.9 Hypothyroidism, unspecified; E78.5 Hyperlipidemia, unspecified; E11.649 Type 2 diabetes mellitus with hypoglycemia without coma; T44.7X5A Adverse effect of beta-adrenoreceptor antagonists, initial encounter; Z88.1 Allergy status to other antibiotic agents; Z88.8 Allergy status to other drugs, medicaments and biological substances; Z79.01 Long term (current) use of anticoagulants; Z79.4 Long term (current) use of insulin; Z79.890 Hormone replacement therapy; Z79.82 Long term (current) use of aspirin; Z79.899 Other long term (current) drug therapy; Z90.49 Acquired absence of other specified parts of digestive tract; Z95.2 Presence of prosthetic heart valve; Z60.2 Problems related to living alone; Z86.73 Personal history of transient ischemic attack (TIA), and cerebral infarction without residual deficits; Z95.0 Presence of cardiac pacemaker; Z20.828 Contact with and (suspected) exposure to other viral communicable diseases
CPT/HCPCS: 36415; 71045; 80048; 80076; 80162; 81001; 82947; 83036; 83605; 83735; 83880; 84145; 84439; 84443; 84484; 85025; 85610; 87077; 87086; 87088; 87186; 93005; 96360; 96361; 97112; 97161; 97530; 99285; J0696; J7030; J7040; U0002